=== PATIENT | female | born 1950 | race Caucasian/White ===

== ENCOUNTER → 2019-10-16 07:37 | Outpatient (CLI) | payer MEDICARE, OTHER, SELFPAY ==
--- NOTE | ~2019-10-16 | XR_ITS ---
EXAMINATION: HAND-CHENTE ARTHRITIS 3+VIEWS DATE: 10/16/2019 08:31 INDICATION: Unspecified osteoarthritis TECHNIQUE: Posteroanterior, lateral, and oblique views of the left and of the right hands as well as a ballcatchers view of both hands were obtained. COMPARISON: 05/20/2014 FINDINGS: Mild interval progression of polyarticular osteoarthritis at both hands, moderate to severe at the le ft triscaphe, first and second metacarpophalangeal and first interphalangeal joints, moderate severit y at the right distal radioulnar and first interphalangeal joints and mild at many of the remaining j oints in both hands. There is suggestion of chronic appearing juxta articular erosion with sclerotic margins and overhanging edges at the radial side of the head of the left first and second metacarpals . Mild subluxation likely degenerative in etiology at the bilateral first interphalangeal joints and left second metacarpophalangeal joint. No fractures. IMPRESSION: 1. Slight interval progression in polyarticular osteoarthritis of both hands as detailed above. This most severe at the right first and second metacarpophalangeal joints where there appear to be a coupl e chronic erosions suggesting this may be secondary to an earlier inflammatory arthritis. The asymmet ry as well as the appearance of the erosions would favor gout over rheumatoid arthritis. Reviewed, dictated and finalized at location A. IMPRESSION: 1. Slight interval progression in polyarticular osteoarthritis of both hands as detailed above. This most severe at the right first and second metacarpophalan geal joints where there appear to be a couple chronic erosions suggesting this may be secondary to an earlier inflammatory arthritis. The asymmetry as well as the appearance of the erosions would favor gout over rheumatoid arthritis.
--- NOTE | ~2019-10-16 | XR_ITS ---
EXAMINATION: XR foot LT standing 2V, XR foot RT standing 2V DATE: 10/16/2019 08:31 INDICATION: Osteoarthritis TECHNIQUE: 1. Standing dorsal plantar and lateral views of the left foot were obtained. 2. Standing dorsal plantar and lateral views of the right foot were obtained COMPARISON: None. FINDINGS: 35 degree hallux valgus on the left and 45 degree hallux valgus on the right. Normal alignment in the mid and hindfeet. Bilateral bunions with mild hypertrophic change at the medial heads of the first m etatarsals. No fractures. Mild to moderate osteoarthritis at the bilateral first metatarsophalangeal joints. Slight widening of the left second proximal interphalangeal joint with change of prior hammer toe correction with osteotomy at the head of the left second proximal phalanx. Remaining joint spaces are relatively preserved. Tiny bilateral Achilles calcaneal enthesophytes. IMPRESSION: 1. Moderate left and severe right hallux valgus with bunions and mild to moderate osteoarthritis at t he bilateral first metatarsophalangeal joints. Reviewed, dictated and finalized at location A. IMPRESSION: 1. Moderate left and severe right hallux valgus with bunions and mild to modera te osteoarthritis at the bilateral first metatarsophalangeal joints.
== END ==
PROVIDERS: Visit Provider Internal Medicine
DX: M47.812 Spondylosis without myelopathy or radiculopathy, cervical region (principal); M20.11 Hallux valgus (acquired), right foot; M20.12 Hallux valgus (acquired), left foot; M19.071 Primary osteoarthritis, right ankle and foot; M19.072 Primary osteoarthritis, left ankle and foot; M19.041 Primary osteoarthritis, right hand; M19.042 Primary osteoarthritis, left hand
CPT/HCPCS: 73130; 73620

== ENCOUNTER → 2021-02-18 10:39 | Outpatient (CLI) | payer MEDICARE, SELFPAY ==
--- NOTE | ~2021-02-18 | MM_ITS ---
EXAMINATION: MM screening liset BI w brissa HISTORY: Screening TECHNIQUE: Craniocaudal and mediolateral oblique 3-D tomosynthesis images were obtained and synthetic 2-D images were generated. CAD analysis was submitted and interpreted. COMPARISON: No prior mammogram is available for comparison at this institution. BREAST PARENCHYMAL COMPOSITION: Comparison to multiple prior studies sequentially, with oldest review ed study dated 12/10/2013. FINDINGS: There is no evidence of suspicious mass, calcification, or architectural distortion to sugg est malignancy in either breast. There has been no suspicious interval change. IMPRESSION: 1. No mammographic evidence of malignancy. 2. Recommend routine screening mammography in one year. BI-RADS Category 1: Negative Reviewed, dictated and finalized at location A. COMPLIANCE
== END ==
PROVIDERS: PCP Nurse Practitioner Family; Visit Provider Nurse Practitioner Family
DX: Z12.31 Encounter for screening mammogram for malignant neoplasm of breast (principal)
CPT/HCPCS: 77063; 77067

== ENCOUNTER → 2022-02-21 09:13 | Outpatient (CLI) | payer MEDICARE, SELFPAY ==
--- NOTE | ~2022-02-21 | DEXA_ITS ---
Bone Density Report Name: SHADIA MCCAULEY Age: 71 Sex: Female Ethnicity: White Date of : 1950 Indication: postmenopausal; screening for osteoporosis; height loss; hysterectomy; rheumatoid arthritis; Referring Provider: Marlen, Anjali Colon Study: Bone densitometry was performed. Exam Date: February 21, 2022 Accession number: [id number] Bone Density: Region BMD T-score Z-score Classification AP Spine (L1-L4) 1.277 2.1 4.3 Normal Femoral Neck (Left) 0.857 0.1 2.0 Normal Total Hip (Left) 1.050 0.9 2.5 Normal Femoral Neck (Right) 0.792 -0.5 1.4 Normal Total Hip (Right) 0.975 0.3 1.9 Normal Total Hip Mean 1.013 0.6 2.2 Normal World Health Organization criteria for BMD impression classify patients as: Normal (T-score at or above -1.0), Osteopenia (T-score between -1.0 and -2.5), or Osteoporosis (T-score at or below -2.5). 10-year Fracture Risk: FRAX not reported because: All T-scores for Spine Total, Hip Total, Femoral Neck at or above -1.0 Previous Exams: Region Exam Age BMD T-score BMD Change BMD Change Date g/cm2 vs Baseline vs Previous AP Spine(L1-L4) 02/21/2022 71 1.277 2.1 0.101 0.101 12/10/2013 63 1.176 1.2 Total Hip(Left) 02/21/2022 71 1.050 0.9 0.008 0.008 12/10/2013 63 1.041 0.8 Total Hip(Right) 02/21/2022 71 0.975 0.3 0.000 0.000 12/10/2013 63 0.976 0.3 *Denotes significance at 95% confidence level, LSC for AP Spine = 0.022 g/cm2, LSC for Total Hip = 0.027 g/cm2 Clinical Information Provided by Patient: Has rheumatoid arthritis Has used the following medications: Vitamin D, Calcium Has the following medical conditions: Hysterectomy Patient maximum height was 68.0 Menopause Age: 35 No regular weight bearing exercise Does not regularly consume dairy products Drinks caffeinated beverages Onset of menses at age 9 Number of children 1 Impression: The patient has normal bone mass. No significant bone loss was observed. Discussion: BONE DENSITY IS ABOVE THE MINIMUM DESIRABLE LEVEL AT ALL SKELETAL SITES TESTED. This patient?s bone mineral density is above the minimum desirable level (T-score -1.0 or better) at all sites measured. The patient should follow a healthful lifestyle (good nutrition with adequate calcium and vitamin D, and appropriate weight-bearing exercise). Follow-Up: Consider repeating this study in 5 years or sooner if there
== END ==
PROVIDERS: PCP Nurse Practitioner Family; Visit Provider Nurse Practitioner Family
DX: Z78.0 Asymptomatic menopausal state (principal); M85.80 Other specified disorders of bone density and structure, unspecified site
CPT/HCPCS: 77080

== ENCOUNTER 2022-06-02 13:57 | Inpatient (IN) | payer MEDICARE, SELFPAY ==
[2022-06-02] VITALS (10 sets, daily range): BP systolic 136–190; BP diastolic 69–107; PULSE 98–147; RESP 16–20; TEMP 36.6; O2SAT 95–97
--- NOTE | ~2022-06-02 | XR_ITS ---
Right Humerus Technique: Portable AP view was obtained. Clinical History: Pain Findings: No fracture or dislocation is seen. Osseous alignment is anatomic. Visualized joint spaces are grossly preserved. Soft tissues are unremarkable. Impression: No fracture or dislocation seen. Reviewed, dictated and finalized at location . Impression: No fracture or dislocation seen.
--- NOTE | ~2022-06-02 | XR_ITS ---
EXAMINATION: XR chest 1V portable INDICATION: Chest pain, rib fracture TECHNIQUE: Portable AP chest at 1734 hours COMPARISON: 06/03/2022 FINDINGS: The lungs are free of acute opacities. No pleural effusion or pneumothorax. The cardiomedia stinal silhouette is normal. Previously described left eighth and ninth rib fractures are not well de monstrated on this single AP view. IMPRESSION: 1. No acute cardiopulmonary abnormality. Reviewed, dictated and finalized at location A.
--- NOTE | ~2022-06-02 | XR_ITS ---
XR chest 2V DATE: 06/02/2022 18:52 INDICATION: Palpitations. Atrial fibrillation. TECHNIQUE: PA and lateral chest COMPARISON: 12/01/2011 PA and lateral chest FINDINGS: Normal heart size. Is aortic calcification, ectasia and unfolding. No hilar or mediastinal enlargement is detected. No pulmonary infiltrate or consolidation, pleural effusion or pulmonary vascular congestion or pneumo thorax. There is diffuse osteopenia. There is levoscoliosis of the thoracic spine and rotatory dextroscoliosi s and multilevel degenerative disc disease of the lumbar spine. IMPRESSION: No active cardiopulmonary disease Aortic ectasia, calcification and unfolding Reviewed, dictated and finalized at location A.
--- NOTE | ~2022-06-02 | XR_ITS ---
Portable chest x-ray Comparison: 06/02/2022 Clinical History: Pain Findings: Stable calcified left upper lobe granuloma. Lungs are otherwise clear. Cardiomediastinal silhouette is stable. Bones and soft tissues are unremarkable. Impression: No acute abnormality seen. Reviewed, dictated and finalized at [facility]. Impression: No acute abnormality seen.
--- NOTE | ~2022-06-02 | XR_ITS ---
EXAMINATION: XR ribs LT 2V INDICATION: Left posterior rib pain TECHNIQUE: 3 views of the left ribs were obtained. COMPARISON: 06/02/2022 FINDINGS: There are minimally displaced posterior fractures of the left eighth and ninth ribs.. The l ungs are free of acute opacities. No pleural effusion or pneumothorax. The cardiomediastinal silhouet te is normal. IMPRESSION: 1. Minimally displaced posterior fractures of the left eighth and ninth ribs. Reviewed, dictated and finalized at location B.
--- NOTE | 2022-06-02 14:29 | ECG_ITS ---
Measurements Intervals [place] Rate: 133 P: [place]: 0 QRS: 14 QRSD: 90 T: 18 QT: 294 QTc: 437 Interpretive Statements ATRIAL FIBRILLATION WITH RAPID VENTRICULAR RESPONSE NONSPECIFIC ST & T-WAVE ABNORMALITY- ANTEROLAT/INF LEADS BASELINE ARTIFACT- I, II, III, AVR, AVL ABNORMAL ECG NO PREVIOUS ECG AVAILABLE FOR COMPARISON Electronically Signed On 06-02-2022 15:55:00 CDT by John Roberson D.O.
[2022-06-02 14:58] LABS: Basophils Percent Auto 0.5 % (0.2-1.2); Eosinophils Absolute Auto 0.1 K/mm3 (0-0.3); Eosinophils Percent Auto 1.5 % (0-4.4); Hematocrit 43.9 % (37.0-47.0); Hemoglobin 14.6 g/dL (12.0-15.0); Immature Granulocyte Absolute 0.04 K/mm3 (0.00-0.031); Immature Granulocyte Percent A 0.5 % (0-0.5); Lymphocytes Absolute Auto 1.77 K/mm3 (0.9-3.2); Lymphocytes Percent Auto 23.6 % (18.3-44.2); Mean Corpuscular HGB Conc 33.3 g/dl (32-36); Mean Corpuscular Hemoglobin 32.3 pg (26-34); Mean Corpuscular Volume 97.1 fl (80-100); Mean Platelet Volume 8.5 fl (7.4-10.4); Monocytes Absolute Auto 1.1 K/mm3 (0.1-0.6); Monocytes Percent Auto 14.5 % (2.6-8.5); Neutrophils Absolute Auto 4.5 K/mm3 (1.3-6.7); Neutrophils Percent Auto 59.4 % (45.5-73.1); Platelet Count Result 276 k/mm3 (150-375); Red Blood Count 4.52 M/mm3 (4.2-5.4); Red Cell Distribution Width 12.4 % (11.5-14.5); White Blood Count 7.5 K/mm3 (4.5-10.0)
[2022-06-02 15:25] LABS: Alanine Aminotransferase 30 U/L (6-35); Albumin Level 4.8 g/dL (3.5-5.1); Alkaline Phosphatase 63 U/L (38-126); Anion Gap 9 mmol/L (8-16); Aspartate Amino Transferase 40 U/L (14-36); Bilirubin,Total 0.5 mg/dL (0.2-1.3); Blood Urea Nitrogen 20 mg/dL (7-17); Calcium 9.4 mg/dL (8.4-10.2); Carbon Dioxide 35 mmol/L (22-30); Chloride 88 mmol/L (98-107); Estimated CRCL calculation 43 ml/min; Estimated Glomerular Filt Rate 44; Glucose 130 mg/dL (65-110); Lipase 168 U/L (23-300); Potassium 3.3 mmol/L (3.4-5.0); Sodium 132 mmol/L (137-145)
[2022-06-02 15:35] LABS: Troponin I < 0.012 ng/mL (0.000-0.034)
--- NOTE | 2022-06-02 18:28 | ED.GENADULT ---
HPI - General Adult General Chief complaint: Unspecified Stated complaint: high bp, high HR Time Seen by Provider: 06/02/22 18:20 Source: patient Mode of arrival: ambulatory Limitations: no limitations History of Present Illness HPI narrative: Patient is a 71-year-old female with history of hypertension, hyperlipidemia presenting to the emergency department for evaluation of elevated blood pressure reading fast heart rate. Patient states her blood pressure remains greater than 160 systolic at home. She states that the bottom number has been higher than 100. Patient denies chest pain. She denies dyspnea. No palpitations. Pt reports her HR has been 90s-100s. Pt denies history of atrial fibrillation. She was prescribed amlodipine by her primary care physician and has been taking that for the past 3 days without much improvement in her blood pressure. Related Data Home Medications Medication Instructions Recorded Confirmed brinzolamide 1 %-brimonidine 0.2 % 1 drop ophthalmic (eye) BID 05/15/19 04/27/21 eye drops,suspension (Simbrinza) gabapentin 300 mg tablet,extended 300 mg PO QPM 05/15/19 04/27/21 release 24 hr latanoprost 0.005 % eye drops 1 drop ophthalmic (eye) DAILY 05/15/19 04/27/21 propylene glycol 0.6 % eye drops 1 drop ophthalmic (eye) BID PRN 05/15/19 04/27/21 (Systane Balance) timolol 0.25 % eye drops 1 drop ophthalmic (eye) Q12H 05/15/19 04/27/21 calcium carbonate [Calcium 500] PO 06/09/20 04/27/21 cholecalciferol (vitamin D3) 25 25 mcg PO DAILY 06/09/20 04/27/21 mcg (1,000 unit) capsule simvastatin 10 mg tablet 20 mg PO DAILY 04/27/21 04/27/21 lisinopril 20 1 tablet PO DAILY 09/03/21 mg-hydrochlorothiazide 12.5 mg tablet peg 400-propylene glycol (PF) 0.4 1 drp EACH EYE Q12H PRN 09/03/21 %-0.3 % eye drops in a dropperette (Systane (PF)) Allergies Allergy/AdvReac Type Severity Reaction Status Date / Time No Known Allergies Allergy Verified 06/02/22 14:28 Review of Systems Review of Systems: CONSTITUTIONAL: Denies fever, chills, or sweats. EYES: Denies visual changes, redness, or discharge. ENT: Denies rhinorrhea, congestion, sore throat, or otalgia. CARDIOVASCULAR: Denies chest pain, palpitations, or edema. RESPIRATORY: Denies cough or dyspnea. GASTROINTESTINAL: Denies abdominal pain, nausea, vomiting, or diarrhea. GENITOURINARY: Denies dysuria or hematuria. SKIN: Denies rash or itching. MUSCULOSKELETAL: Denies back pain, joint pain, or myalgia. NEUROLOGIC: Denies headache, numbness, or weakness. [facility] Past Medical History Medical History Arthritis DJD (degenerative joint disease) of cervical spine Generalized osteoarthritis of multiple sites Hepatitis C antibody positive in blood Hypertension Surgical History Surgical History H/O colonoscopy H/O total hysterectomy S/P excision of neuroma Family History Family History Mother Congestive heart failure (CHF) Father Pulmonary embolism Social History Social History Smoking status: Former smoker Smoking end date: 06/11/97 Alcohol intake: current Substance use: never Substance use type: does not use Living arrangements: with family Additional living arrangements comments: Occupation/Education: retired Gender identity (if verbalized by the patient): Female Spiritual care concerns: No Agree to blood products: No Exam Narrative: GENERAL: Awake, alert, conversant HEAD: Normocephalic, atraumatic. EYES: PERRLA and EOMI. ENT: Nares clear, no rhinorrhea or epistaxis. Mucous membranes moist. NECK: Supple. CHEST: No respiratory distress, breathing even and non labored, no crackles, no wheezing rhonchi or rales HEART: Tachycardic rate, irregular rhythm ABDOMEN
--- NOTE | 2022-06-02 18:49 | ECG_ITS ---
Measurements Intervals [place] Rate: 124 P: [place]: 0 QRS: 4 QRSD: 84 T: 31 QT: 292 QTc: 420 Interpretive Statements ATRIAL FIBRILLATION WITH RAPID VENTRICULAR RESPONSE VOLTAGE CRITERIA FOR LVH BORDERLINE ST ABNORMALITY- ANTERIOR LEADS ABNORMAL ECG COMPARED TO ECG 06/02/2022 14:33:37 NO SIGNIFICANT CHANGES Electronically Signed On 06-02-2022 20:59:05 CDT by John Roberson D.O.
[2022-06-02] MEDS: SODIUM CHLORIDE 0.9% IV 1,000 ML 999 ML IV CONT (19:03)
[2022-06-02] MEDS: dilTIAZem HCl INJ 25 MG/5 ML VIAL 10 MG IV PUSH (19:03)
[2022-06-02] MEDS: ENOXAPARIN 100 MG/ML SYRINGE 90 MG SUB-Q (19:04)
[2022-06-02] MEDS: dilTIAZem 100 MG/100 ML 100 MG/100 ML BAG IV CONT (19:10)
[2022-06-02 19:31] LABS: NT Pro B Type Natriuretic Pept 213 pg/mL (19.9-100)
[2022-06-02 19:38] LABS: Troponin I < 0.012 ng/mL (0.000-0.034)
--- NOTE | 2022-06-02 19:55 | PM.IMHP ---
H&P: HPI History of Present Illness Date/Time: 06/02/22 19:55 Chief Complaint: Uncontrolled hypertension Narrative: This is a 71-year-old female with past medical history significant for cataracts, hypertension, dyslipidemia, degenerative joint disease, generalized osteoarthritis. Patient presents to the emergency room due to uncontrolled hypertension emergency room she was found to have atrial fibrillation with rapid ventricular response. Patient denies any syncope or near syncope or lightheadedness no palpitations, no chest pain, no leg swelling, no pedal swelling, no orthopnea, no PND, no nausea, no vomiting, no abdominal pain. Only complaint patient had was elevated a blood pressure for which she went to see her primary care physician. In emergency room patient was found to have systolic blood pressure in the 190s diastolic in the 100s. A chest x-ray was reported as: FINDINGS: There is persistent right lower lobe infiltrate and/or atelectasis. Bilateral hyperinflation, suggesting COPD. No pulmonary vascular congestion or pneumothorax is evident. Small right pleural effusion is suggested. No left pleural effusion. Bilateral upper thoracic spinal pedicle screws and rods. Osteopenia. Old bilateral rib fractures. IMPRESSION: Persistent right lower lobe infiltrate, mild right pleural effusion; little interval change since 05/23/2022? Review of Systems Review of Systems: Uncontrolled blood pressure Constitutional: Constitutional: Denies chills, Denies fatigue, Denies fever(s), Denies lethargy, Denies malaise, Denies night sweats, Denies poor appetite and Denies weakness Eyes: Eyes: Denies change in vision ENT: Denies dysphagia and Denies odynophagia Cardiovascular: Cardiovascular: Denies chest pain, Denies lightheadedness and Denies palpitations Respiratory: Respiratory: Denies chest congestion, Denies cough and Denies dyspnea Gastrointestinal: Gastrointestinal: Denies abdominal pain, Denies dyspepsia, Denies heartburn, Denies diarrhea, Denies nausea and Denies vomiting Genitourinary: Genitourinary: Reports no additional female genitourinary complaints and Reports as per HPI Musculoskeletal: Musculoskeletal: Denies back pain, Denies joint swelling and Denies muscle weakness Integumentary/Breasts: Skin/Breast: Denies rash Neurologic: Denies focal weakness and Denies Sensory deficit (Neuro) Psychiatric: Psychiatric: Reports no additional psychiatric complaints and Reports as per HPI Endocrine: Endocrine: Denies cold intolerance, Denies flushing, Denies heat intolerance, Denies polyphagia, Denies polydipsia and Denies palpitations Hematologic/Lymphatic: Hematologic/Lymphatic: Reports no additional hematologic/lymphatic complaints and Reports as per HPI Allergic/Immunologic: Allergic/Immunologic: Reports no additional allergic/immunologic complaints and Reports as per HPI [facility] Past Medical History Medical History Arthritis DJD (degenerative joint disease) of cervical spine Generalized osteoarthritis of multiple sites Hepatitis C antibody positive in blood Hypertension Surgical History Surgical History H/O colonoscopy H/O total hysterectomy S/P excision of neuroma Family History Family History Mother Congestive heart failure (CHF) Father Pulmonary embolism Social History Social History Smoking status: Former smoker Tobacco type: cigarettes Smoking end date: 03/13/97 Alcohol intake: current Drinks per week: 4 Substance use: never Substance use type: does not use Lack of Transportation: No Lack of Food: Never True Current Housing: I Have Housing Concerned About Future Housing: No Difficulty Paying Gas/Electric Bills: No Difficulty Paying for Meds: N
[2022-06-02 20:48] LABS: Troponin I 0.013 ng/mL (0.000-0.034)
[2022-06-02 21:01] LABS: Free T4 Free Thyroxine Reflex 1.17 ng/dL (0.78-2.19)
[2022-06-02 21:42] LABS: Total Triiodothyronine (T3) 1.55 NG/ML (0.97-1.69)
[2022-06-03] VITALS (17 sets, daily range): BP systolic 115–168; BP diastolic 67–102; PULSE 52–118; RESP 16–22; TEMP 36–37.2; O2SAT 93–98; BMI 33.2
--- NOTE | 2022-06-03 | ECHO_ITS ---
Patient Info Name: Nicole Sun Age: 71 years : 1950 Gender: Female Ht: 66 in Wt: 202 lbs BSA: 2.10 m2 HR: 87 bpm BP: 141 / 69 mmHg Heart Rhythm: Atrial Fibrillation Technical Quality: Fair Exam Date: 06/03/2022 7:49 AM Exam Location: [facility] Patient Status: Inpatient Admit Date: 06/02/2022 Staff Ordering Physician: John Roberson DO Archival Studies Professor: Kassie Ratliff RDCS Attending Provider: Juan M Chawla MD Referring Physician: Da CHU; Exam Type: CA echo doppler color flow Study Info Indications - atrial fib Complete two-dimensional, color flow and Doppler transthoracic echocardiogram is performed. Summary 1. Complete two-dimensional, color flow and Doppler transthoracic echocardiogram is performed. 2. Left ventricular chamber dimension is normal. 3. Left ventricular systolic function is normal, estimated at 65-70%. 4. There is mild concentric increased left ventricular wall thickness. 5. The left ventricular diastolic function is normal. 6. E/e' 9 is minimally elevated. 7. Atrial fibrillation. 8. Left atrial chamber dimension is mildly enlarged. Left Ventricle E/e' 9 is minimally elevated. Atrial fibrillation. Left ventricular chamber dimension is normal. Left ventricular systolic function is normal, estimated at 65-70%. There is mild concentric increased left ventricular wall thickness. The left ventricular diastolic function is normal. Right Ventricle Right ventricular systolic function is normal and with normal TAPSE 2.0 cm. Right ventricular chamber dimension is normal. Left Atria Left atrial chamber dimension is mildly enlarged. Right Atria Right atrial chamber dimension is normal. Aortic Valve The aortic valve is trileaflet. There is no aortic valve stenosis. There is no aortic valve regurgitation. Pulmonic Valve There is no pulmonic regurgitation. Mitral Valve There is no mitral valve stenosis. There is no mitral valve regurgitation. Tricuspid Valve There is no tricuspid valve regurgitation. Pericardium/Pleural There is no pericardial effusion. Inferior Vena Cava Normal inferior vena cava with >50% collapse upon inspiration consistent with normal right atrial pressure, 5 mmHg. Aorta The aortic root size at the sinus of Valsalva is normal. Left Ventricular Outflow Tract Name Value Normal LVOT 2D LVOT Diameter 2.0 cm LVOT Doppler LVOT Peak Gradient 11 mmHg LVOT Mean Gradient 5 mmHg LVOT VTI 26 cm LVOT VTI/AV VTI Ratio 0.9 LVOT Stroke Volume 84 ml LVOT CO 8.7 l/min LVOT CI 4.2 l/min/m2 Pulmonic Valve Name Value Normal RVOT Doppler RVOT Peak Gradient
--- NOTE | 2022-06-03 01:04 | ADMGEN ---
This patient, Nicole Sun, was admitted to IMU Room 206-01 at 0000 from ED per wheelchair. Patient/family oriented to hospital policies and general routines including ID bracelet, bed and alarms, visiting hours, pain management, procedures, bathroom and other care routines, personal items, smoking policy, room service/diet, and visiting hours. Information on how to activate the Rapid Response Team has been discussed. Patient/Family are encouraged to report perceived risks to care and to ask questions if they do not understand what they are told or what they should do.
[2022-06-03] MEDS: diphenhydrAMINE HCl CAP 25 MG CAPSULE 50 MG PO (01:57)
[2022-06-03] MEDS: dilTIAZem 100 MG/100 ML 100 MG/100 ML BAG 15 MG IV CONT (03:29)
[2022-06-03 05:31] LABS: Basophils Percent Auto 0.3 % (0.2-1.2); Eosinophils Absolute Auto 0.1 K/mm3 (0-0.3); Eosinophils Percent Auto 0.5 % (0-4.4); Hemoglobin 14.6 g/dL (12.0-15.0); Immature Granulocyte Absolute 0.04 K/mm3 (0.00-0.031); Immature Granulocyte Percent A 0.4 % (0-0.5); Lymphocytes Absolute Auto 1.34 K/mm3 (0.9-3.2); Lymphocytes Percent Auto 13.9 % (18.3-44.2); Mean Corpuscular Hemoglobin 32.7 pg (26-34); Mean Corpuscular Volume 96.2 fl (80-100); Mean Platelet Volume 8.7 fl (7.4-10.4); Monocytes Absolute Auto 1.3 K/mm3 (0.1-0.6); Monocytes Percent Auto 13.4 % (2.6-8.5); Neutrophils Absolute Auto 6.9 K/mm3 (1.3-6.7); Neutrophils Percent Auto 71.5 % (45.5-73.1); Platelet Count Result 292 k/mm3 (150-375); Red Blood Count 4.47 M/mm3 (4.2-5.4); Red Cell Distribution Width 12.4 % (11.5-14.5); White Blood Count 9.6 K/mm3 (4.5-10.0)
[2022-06-03 05:44] LABS: Anion Gap 8 mmol/L (8-16); Blood Urea Nitrogen 14 mg/dL (7-17); Calcium 8.9 mg/dL (8.4-10.2); Carbon Dioxide 30 mmol/L (22-30); Chloride 94 mmol/L (98-107); Estimated CRCL calculation 98 ml/min; Estimated Glomerular Filt Rate > 60; Glucose 127 mg/dL (65-110); Potassium 3.3 mmol/L (3.4-5.0); Sodium 132 mmol/L (137-145)
--- NOTE | 2022-06-03 07:49 | PM.CNCAR ---
Assessment and Plan Assessment and plan (1) Atrial fibrillation with rapid ventricular response: Code(s): I48.91 - Unspecified atrial fibrillation Status: Acute Assessment and Plan: Asymptomatic, new onset but we don't know when it actually started. Probably due to hypertension and age. [id number]. Start Eliquis 5 mg BID. If cost-prohibitive then will need to start Warfarin. Obtain echo and lexiscan myoview stress test. Change Diltiazem IV to 360 mg PO daily and add Metoprolol Tartate 25 mg PO BID. If HR and BP controlled and stress test/echo are OK may d/c home from cardiology standpoint and have her f/u with me in 1 week. She is adamant she is not staying another night primarily due to chronic back pain and unable to sleep here. (2) Uncontrolled hypertension: Code(s): I10 - Essential (primary) hypertension Status: Acute (3) Dyslipidemia: Code(s): E78.5 - Hyperlipidemia, unspecified Status: Acute Assessment and Plan: On Simvastatin. History of Present Illness History of Present Illness Consult date/time: 06/03/22 07:49 Reason For Visit: A fib with RVR Narrative: 71 yr old woman presented to ER for hypertension. She has a history of hypertension, dyslipidemia, chronic lower back pain. Reports she was concerned that her BP was high so she came in and was found to be in atrial fib with RVR. Diltiazem drip started and rate is controlled now in atrial fib. She is limited at walking short distances due to chronic lower back pain and she is having it now lying in hospital bed per patient. She wants to go home and will not stay another night. Denies chest pain, sob, orthopnea, PND, edema, dizziness, palpitations. Review of Systems Review of Systems: All systems reviewed & are unremarkable except as noted in HPI and below Constitutional: Constitutional: Reports as per HPI, Denies chills and Denies fever(s) Cardiovascular: Cardiovascular: Reports as per HPI, Denies chest pain, Denies irregular heart rhythm and Denies leg edema Respiratory: Respiratory: Reports as per HPI and Denies dyspnea Gastrointestinal: Gastrointestinal: Reports as per HPI and Denies abdominal pain Genitourinary: Genitourinary: Reports as per HPI and Denies dysuria Musculoskeletal: Musculoskeletal: Reports as per HPI and Reports back pain Neurologic: Reports as per HPI, Denies dizziness and Denies syncope FORMERLY [facility], [facility]–1983 Past Medical History Medical History Arthritis DJD (degenerative joint disease) of cervical spine Generalized osteoarthritis of multiple sites Hepatitis C antibody positive in blood Hypertension Surgical History Surgical History H/O colonoscopy H/O total hysterectomy S/P excision of neuroma Family History Family History Mother Congestive heart failure (CHF) Father Pulmonary embolism Social History Social History Smoking status: Former smoker Tobacco type: cigarettes Smoking end date: 03/13/97 Alcohol intake: current Drinks per week: 4 Substance use: never Substance use type: does not use Lack of Transportation: No Lack of Food: Never True Current Housing: I Have Housing Concerned About Future Housing: No Difficulty Paying Gas/Electric Bills: No Difficulty Paying for Meds: No Currently Unemployed: No Education: High School Diploma/GED Difficulty w/ Childcare or Family Care: No Living arrangements: with family Additional living arrangements comments: Occupation/Education: retired Gender identity (if verbalized by the patient): Female Spiritual care concerns: No Agree to blood products: No Meds Home Medications and Allergies Home Medications Medication Instructions Recorded Confir
[2022-06-03] MEDS: HYDROcodone/acetaminophen (*CRX) 5-325 MG TABLET 1 TAB PO (09:57)
[2022-06-03] MEDS: dilTIAZem HCL CD 180 MG CAP.ER.24H 360 MG PO (09:57)
[2022-06-03] MEDS: SIMVASTATIN 10 MG TABLET 20 MG PO (09:58)
[2022-06-03] MEDS: METOPROLOL TARTRATE 25 MG TABLET PO (09:58)
[2022-06-03] MEDS: GABAPENTIN 300 MG CAPSULE PO ×2 (09:58→16:46)
[2022-06-03] MEDS: CHOLECALCIFEROL 1,000 UNITS TABLET 1000 UNITS PO (09:59)
[2022-06-03] MEDS: lisinopriL 20 MG TABLET PO ×2 (09:59→20:24)
[2022-06-03] MEDS: APIXABAN 5 MG TABLET PO ×2 (09:59→20:24)
[2022-06-03] MEDS: hydroCHLOROthiazide 12.5 MG CAPSULE PO ×2 (09:59→20:24)
[2022-06-03] MEDS: BRIMONIDINE TARTRATE 0.2% OP SOLN 5 ML BTL 1 DROP EACH EYE ×2 (12:44→17:38)
[2022-06-03] MEDS: TIMOLOL MALEATE 0.25% OP SOLN 5 ML BOTTLE 1 DROP EACH EYE ×2 (12:44→20:25)
[2022-06-03] MEDS: LATANOPROST 0.005% OP SOLN 2.5 ML BTL 1 DROP EACH EYE (12:44)
[2022-06-03] MEDS: BRINZOLAMIDE 1% OPHTH SUSP 10 ML 1 DROP EACH EYE ×2 (12:44→17:39)
[2022-06-03] MEDS: HYDROcodone/acetaminophen (*CRX) 10-325 MG TABLET 1 TAB PO ×3 (12:45→20:25)
--- NOTE | 2022-06-03 13:24 | PM.IMPN ---
Progress Note: A&P Assessment and Plan (1) Atrial fibrillation with rapid ventricular response: Code(s): I48.91 - Unspecified atrial fibrillation Status: Acute Assessment and Plan: Transition to oral Cardizem. With Shanice Torres cardiology input (2) DJD (degenerative joint disease) of cervical spine: Code(s): M47.812 - Spondylosis without myelopathy or radiculopathy, cervical region Status: Acute Assessment and Plan: Tylenol as needed Unchanged (3) Uncontrolled hypertension: Code(s): I10 - Essential (primary) hypertension Status: Acute Assessment and Plan: Resume home meds Continue to monitor Target 130/80 (4) Fall: Code(s): W19.XXXA - Unspecified fall, initial encounter Status: Acute Assessment and Plan: Status post fall, tripped over the IV pole. No loss of consciousness Rib fractures noted continue pain control Hip pain, will get hip x-rays (5) Rib fracture: Code(s): S22.39XA - Fracture of one rib, unspecified side, initial encounter for closed fracture Status: Acute Assessment and Plan: Continue pain control, will get chest x-ray in a.m. Subjective Date/time seen: 06/03/22 13:24 Fall in the bathroom this morning. Exam Narrative: Patient is laying in a stretcher in semi upright position Const: General: comfortable, no acute distress, well developed, alert, awake, average body habitus, obese and other (Well-appearing) Nutritional Appearance: average body habitus and obese Orientation/consciousness: patient oriented x3 HENMT: Head: normal to inspection, normocephalic and atraumatic Ears: hearing grossly normal bilaterally Face/Nose/Sinus: normal facial exam Face and sinus: normal facial exam Eyes: General: appearance normal, both eyes and all related structures Pupils: Equal, round and reactive pupils present EOM: EOMs intact bilaterally Neck: Neck: full ROM, no lymphadenopathy and no JVD Thyroid: thyroid normal Lymphatic: no lymphadenopathy noted Resp: Effort & Inspection: normal respiratory effort and able to speak in complete sentences Auscultation: clear to auscultation bilaterally Cardio: Jugular venous distension: no JVD Rate: regular rate Rhythm: regular rhythm Heart sounds: S1 normal heart sound present and S2 normal heart sound present GI: Inspection: obesity : General: Yes deferred Skin: Rashes: no rashes Wounds: no wounds Neuro: General: patient oriented x3, CN's II-XI intact bilaterally and Unable to assess gait Cranial nerves: Yes CN's II-XII intact bilaterally and Yes Equal, round and reactive pupils present Cognition (Neuro): normal cognition Speech: normal speech Gait exam (Neuro): Unable to assess gait Motor exam (neuro): 5/5 motor strength present throughout Sensory Exam: No Sensory deficit (Neuro) Extrem: General: normal to inspection, full ROM, no joint enlargement and no pedal edema Objective Data Vital Signs Vital Signs: Vital Signs - 24 hr 06/02/22 14:24 06/02/22 18:50 06/02/22 19:10 Temperature 97.8 F Pulse Rate 98 147 H 116 H Respiratory Rate 16 19 Blood Pressure 152/104 H 190/107 H 190/107 H Pulse Oximetry 97 97 Oxygen Delivery Room Air 06/02/22 20:21 06/02/22 21:08 06/02/22 21:00 Temperature Pulse Rate 118 H 112 H 131 H Respiratory Rate 20 Blood Pressure 171/101 H 169/89 H 169/89 H Pulse Oximetry 95 Oxygen Delivery 06/02/22 21:30 06/02/22 22:00 06/02/22 22:30 Temperature Pulse Rate 106 H 101 H 98 Respiratory Rate 16 16 16 Blood Pressure 142/83 H 155/88 H 136/77 Pulse Oximetry 96 97 97 Oxygen Delivery 06/02/22 23:00 06/03/22 00:36 06/03/22 02:00 Temperature 97 F L Pulse Rate 99 92 95 Respiratory Rate 18 18 Blood Pressure 151/69 H 151/75 H Pulse Oximetry 97 98 Oxygen Delivery 06/03/22 03:29 06/03/22 04:00 06/03/22 04:00 Temperature Pulse Rate 114 H 105 H 105 H Respiratory Rate 18 Blood
[2022-06-03] MEDS: POTASSIUM CHLORIDE 20 MEQ PACKET (FOR LIQUID) 40 MEQ PO (16:46)
[2022-06-04] VITALS (7 sets, daily range): BP systolic 119–133; BP diastolic 67; PULSE 48–70; RESP 16; TEMP 36.3–36.8; O2SAT 94–97
[2022-06-04] MEDS: HYDROcodone/acetaminophen (*CRX) 10-325 MG TABLET 1 TAB PO ×2 (04:13→09:46)
--- NOTE | 2022-06-04 08:03 | PM.PNCARD ---
Progress Note: A&P Assessment and Plan (1) Atrial fibrillation with rapid ventricular response: Code(s): I48.91 - Unspecified atrial fibrillation Status: Acute Assessment and Plan: Asymptomatic, new onset but we don't know when it actually started. Probably due to hypertension and age. [id number]. Started Eliquis 5 mg BID. If cost-prohibitive then will need to start Warfarin. Lexiscan myoview stress test canceled yesterday due to rib fractures from fall. Echo on 06/03/22 EF 65-70%, mild LVH, mild LAE. Back in sinus rhythm after rate controlled. Check BMP. If OK may d/c home from cardiology standpoint and have her f/u with me in 1 week. She is adamant she is not staying another night primarily due to chronic back pain and unable to sleep here. (2) Uncontrolled hypertension: Code(s): I10 - Essential (primary) hypertension Status: Acute Assessment and Plan: Stable. Decrease Lisinopril/HCTZ 20/12.5 mg daily. (3) Dyslipidemia: Code(s): E78.5 - Hyperlipidemia, unspecified Status: Acute Assessment and Plan: On Simvastatin. Subjective Date/time seen: 06/04/22 08:03 Interval history: Has some left side chest pain from rib fractures. She slipped on her IV pole in restroom and fell. No sob. Exam Const: General: cooperative, healthy appearing and comfortable Orientation/consciousness: oriented to person, oriented to place and oriented to time Resp: Auscultation: clear to auscultation bilaterally, no crackles, no rales, no rhonchi and no wheezes Cardio: Rate: regular rate Rhythm: regular rhythm Heart sounds: no murmurs Peripheral pulses: dorsalis pedis present Neuro: General: oriented to person, oriented to place and oriented to time Extrem: Right lower extremity: no edema Left lower extremity: no edema Objective Data Vital Signs Vital Signs: Vital Signs - 24 hr 06/03/22 08:51 06/03/22 09:58 06/03/22 12:00 Temperature 96.8 F L Pulse Rate 92 85 58 L Respiratory Rate 22 H 20 Blood Pressure 157/102 H 168/92 H Pulse Oximetry 98 93 Oxygen Delivery 06/03/22 12:00 06/03/22 16:00 06/03/22 16:00 Temperature 97.9 F Pulse Rate 52 L 52 L Respiratory Rate 20 20 Blood Pressure 134/79 Pulse Oximetry 94 94 Oxygen Delivery Room Air Room Air 06/03/22 10:00 06/03/22 12:00 06/03/22 14:00 Temperature Pulse Rate 80 58 L 56 L Respiratory Rate Blood Pressure Pulse Oximetry Oxygen Delivery 06/03/22 16:00 06/03/22 18:00 06/03/22 20:00 Temperature 97.1 F L Pulse Rate 53 L 57 L 59 L Respiratory Rate 16 Blood Pressure 152/79 H Pulse Oximetry 98 Oxygen Delivery 06/03/22 23:49 06/03/22 20:00 06/04/22 00:00 Temperature 96.9 F L Pulse Rate 54 L 59 L 54 L Respiratory Rate 16 16 16 Blood Pressure 115/67 Pulse Oximetry 94 98 94 Oxygen Delivery Room Air Room Air 06/03/22 20:00 06/03/22 22:00 06/04/22 00:00 Temperature Pulse Rate 56 L 54 L 51 L Respiratory Rate Blood Pressure Pulse Oximetry Oxygen Delivery 06/04/22 02:00 06/04/22 04:00 06/04/22 04:00 Temperature 97.3 F L Pulse Rate 48 L 57 L 61 Respiratory Rate 16 Blood Pressure 120/67 Pulse Oximetry 97 Oxygen Delivery 06/04/22 04:00 06/04/22 06:00 Temperature Pulse Rate 57 L 59 L Respiratory Rate 16 Blood Pressure Pulse Oximetry 97 Oxygen Delivery Room Air Intake/Output Intake/Output: Intake & Output 06/01/22 06/02/22 06/03/22 06/04/22 23:59 23:59 23:59 23:59 Intake Total 1000 860 400 Output Total 1200 Balance 1000 -340 400 Meds/Results Medications: Active Medications Generic Name Dose Route Start Last Admin Trade Name Freq PRN Reason Stop Dose Admin Acetaminophen 650 mg 06/02/22 20:34 Acetaminophen 325 Mg Tablet PO Q4H PRN Mild Pain (1-3) or Fever Hydrocodone Bitart/Acetaminophen 1 tab 06/03/22 11:47 06/04/22 04:13 Hydrocodone/Acetaminophen (*Crx) 10-325
[2022-06-04 08:19] LABS: Anion Gap 8 mmol/L (8-16); Blood Urea Nitrogen 28 mg/dL (7-17); Calcium 9.4 mg/dL (8.4-10.2); Carbon Dioxide 31 mmol/L (22-30); Chloride 90 mmol/L (98-107); Estimated CRCL calculation 58 ml/min; Estimated Glomerular Filt Rate > 60; Glucose 139 mg/dL (65-110); Sodium 129 mmol/L (137-145)
[2022-06-04] MEDS: dilTIAZem HCL CD 180 MG CAP.ER.24H 360 MG PO (09:32)
[2022-06-04] MEDS: hydroCHLOROthiazide 12.5 MG CAPSULE PO (09:34)
[2022-06-04] MEDS: APIXABAN 5 MG TABLET PO (09:35)
[2022-06-04] MEDS: BRINZOLAMIDE 1% OPHTH SUSP 10 ML 1 DROP EACH EYE (09:35)
[2022-06-04] MEDS: BRIMONIDINE TARTRATE 0.2% OP SOLN 5 ML BTL 1 DROP EACH EYE (09:35)
[2022-06-04] MEDS: GABAPENTIN 300 MG CAPSULE PO ×2 (09:37→12:56)
[2022-06-04] MEDS: CHOLECALCIFEROL 1,000 UNITS TABLET 1000 UNITS PO (09:37)
[2022-06-04] MEDS: SIMVASTATIN 10 MG TABLET 20 MG PO (09:38)
[2022-06-04] MEDS: lisinopriL 20 MG TABLET PO (09:38)
[2022-06-04] MEDS: TIMOLOL MALEATE 0.25% OP SOLN 5 ML BOTTLE 1 DROP EACH EYE (09:43)
--- NOTE | 2022-06-04 12:55 | PM.DS ---
DS: Admitting Diagnosis Discharge Date June 04, 2022 Admitting Diagnosis AFib, fall DS: Discharge Diagnosis Discharge Diagnosis (1) Atrial fibrillation with rapid ventricular response: Code(s): I48.91 - Unspecified atrial fibrillation Status: Acute Assessment and Plan: Transition to oral Cardizem. With Eliquis Appreciate cardiology input (2) DJD (degenerative joint disease) of cervical spine: Code(s): M47.812 - Spondylosis without myelopathy or radiculopathy, cervical region Status: Acute Assessment and Plan: Tylenol as needed Unchanged (3) Uncontrolled hypertension: Code(s): I10 - Essential (primary) hypertension Status: Acute Assessment and Plan: Resume home meds Continue to monitor Target 130/80 (4) Fall: Code(s): W19.XXXA - Unspecified fall, initial encounter Status: Acute Assessment and Plan: Status post fall, tripped over the IV pole. No loss of consciousness Rib fractures noted continue pain control Hip pain, will get hip x-rays (5) Rib fracture: Code(s): S22.39XA - Fracture of one rib, unspecified side, initial encounter for closed fracture Status: Acute Assessment and Plan: Continue pain control, will get chest x-ray in a.m. DS: Summary Hospital Course Hospital Course: Patient is here for new diagnosis AFib RVR. Patient be sent home on Cardizem and Eliquis. Heart rates now converted back to normal sinus rhythm. Follow Cardiology. To note patient did have a fall in the bathroom while she was here. It was a mechanical fall she tripped over the IV pole. Fractured ribs, will be treated with pain medication on discharge. Time Spent with Patient Time attestation: Total time spent providing and/or coordinating discharge services: Exam Narrative: Patient is laying in a stretcher in semi upright position Const: General: comfortable, no acute distress, well developed, alert, awake, average body habitus, obese and other (Well-appearing) Nutritional Appearance: average body habitus and obese Orientation/consciousness: patient oriented x3 HENMT: Head: normal to inspection, normocephalic and atraumatic Ears: hearing grossly normal bilaterally Face/Nose/Sinus: normal facial exam Face and sinus: normal facial exam Eyes: General: appearance normal, both eyes and all related structures Pupils: Equal, round and reactive pupils present EOM: EOMs intact bilaterally Neck: Neck: full ROM, no lymphadenopathy and no JVD Thyroid: thyroid normal Lymphatic: no lymphadenopathy noted Resp: Effort & Inspection: normal respiratory effort and able to speak in complete sentences Auscultation: clear to auscultation bilaterally Cardio: Jugular venous distension: no JVD Rate: regular rate Rhythm: regular rhythm Heart sounds: S1 normal heart sound present and S2 normal heart sound present GI: Inspection: obesity : General: Yes deferred Skin: Rashes: no rashes Wounds: no wounds Neuro: General: patient oriented x3, CN's II-XI intact bilaterally and Unable to assess gait Cranial nerves: Yes CN's II-XII intact bilaterally and Yes Equal, round and reactive pupils present Cognition (Neuro): normal cognition Speech: normal speech Gait exam (Neuro): Unable to assess gait Motor exam (neuro): 5/5 motor strength present throughout Sensory Exam: No Sensory deficit (Neuro) Extrem: General: normal to inspection, full ROM, no joint enlargement and no pedal edema DS: Data Data Completed and Pending Labs on day of discharge: Labs from last 24 hours 06/04/22 07:56 Sodium 129 L Potassium 4.0 Chloride 90 L Carbon Dioxide 31 H Anion Gap 8 BUN 28 H D Creatinine 0.90 Estim Creat Clear Calc 58 Estimated GFR > 60 Glucose 139 H Calcium 9.4 Discharge Plan Discharge Attending physician on discharge: Hayder Becerra Consulting providers: John Roberson Discharging Clinician: Hayder Becerra
--- NOTE | 2022-06-04 14:23 | PC.NURSE ---
I reviewed the License Pending Therapist's documentation and agree with the findings.
== END 2022-06-04 14:03 | disposition home or self-care (01) | DRG 310 ==
LOC: ANHED 19:46 → ANHIMU 23:05
PROVIDERS: Emergency Medicine; Internal Medicine Cardiovascular Disease; Admitting Provider Internal Medicine; Emergency Provider Emergency Medicine; PCP Nurse Practitioner Family; Visit Provider Chiropractor
DX: I48.91 Unspecified atrial fibrillation (principal); S22.42XA Multiple fractures of ribs, left side, initial encounter for closed fracture; W18.09XA Striking against other object with subsequent fall, initial encounter; M47.812 Spondylosis without myelopathy or radiculopathy, cervical region; I10 Essential (primary) hypertension; E78.5 Hyperlipidemia, unspecified; E66.9 Obesity, unspecified; Z68.34 Body mass index [BMI] 34.0-34.9, adult; Z90.710 Acquired absence of both cervix and uterus; Z87.891 Personal history of nicotine dependence
CPT/HCPCS: 36415; 71045; 71046; 71100; 73060; 80048; 80053; 83690; 83880; 84439; 84443; 84480; 84484; 85025; 85610; 85730; 93005; 93306; 96365; 96372; 96376; 99285; A9270; J1650; J2785; J7030

== ENCOUNTER → 2022-06-16 09:42 | Outpatient (CLI) | payer MEDICARE, SELFPAY ==
--- NOTE | ~2022-06-16 | MM_ITS ---
EXAMINATION: MM screening liset BI w brissa HISTORY: Screening TECHNIQUE: Craniocaudal and mediolateral oblique 3-D tomosynthesis images were obtained and synthetic 2-D images were generated. CAD analysis was submitted and interpreted. COMPARISON: Comparison to multiple prior studies sequentially, with oldest reviewed study dated 12/10. BREAST PARENCHYMAL COMPOSITION: The breasts are almost entirely fatty. FINDINGS: There is no evidence of suspicious mass, calcification, or architectural distortion to sugg est malignancy in either breast. There has been no suspicious interval change. IMPRESSION: 1. No mammographic evidence of malignancy. 2. Recommend routine screening mammography in one year. BI-RADS Category 1: Negative Reviewed, dictated and finalized at location A.
== END ==
PROVIDERS: PCP Nurse Practitioner Family; Visit Provider Nurse Practitioner Family
DX: Z12.31 Encounter for screening mammogram for malignant neoplasm of breast (principal)
CPT/HCPCS: 77063; 77067

== ENCOUNTER 2022-08-29 11:55 | Inpatient (IN) | payer MEDICARE, SELFPAY ==
[2022-08-29] VITALS (8 sets, daily range): BP systolic 164–210; BP diastolic 91–108; PULSE 65–86; RESP 14–18; TEMP 36.4–36.9; O2SAT 95–100; BMI 33.1
--- NOTE | ~2022-08-29 | XR_ITS ---
XR chest 1V portable 08/29/2022 12:33 Indication: CVA. Hypertension. Procedure: AP portable chest Comparison: 06/04/2022 Findings: Heart size normal. Bibasilar airspace disease. No pleural effusion or pneumothorax. No acut e osseous abnormality. Impression: 1: Bibasilar airspace disease, suspicious for pneumonia. Reviewed, dictated and finalized at location [] Impression: 1: Bibasilar airspace disease, suspicious for pneumonia.
--- NOTE | ~2022-08-29 | MR_ITS ---
MRI of the brain Clinical History: Confusion Technique: Axial and sagittal T1-weighted images were acquired. These were followed by axial T2-weigh sari, diffusion weighted, gradient, and FLAIR images. Findings: There is no acute infarct, intracranial hemorrhage, or mass lesion. Probable focal chronic lacunar infarct in the left periventricular white matter/left basal ganglia. There are minimal chroni c white matter changes in the periventricular white matter and home. Ventricles and subarachnoid spaces are unremarkable. Orbits are unremarkable. Paranasal sinuses and m astoid air cells are clear. Major intracranial flow voids are intact. Sagittal midline structures are intact. IMPRESSION: No acute intracranial abnormality. Probable chronic lacunar infarct in the left basal ganglia/left periventricular white matter. Minimal chronic microvascular ischemic changes. Reviewed, dictated and finalized at location .
--- NOTE | ~2022-08-29 | CT_ITS ---
EXAMINATION: CT brain wo con DATE: 08/29/2022 12:19 INDICATION: Confusion. TECHNIQUE: Computed tomography (CT) of the head was performed without intravenous contrast. The dose- length product was 605.33 mGy-cm. Automated exposure control and iterative reconstruction technique w ere employed. COMPARISON: None FINDINGS: Generalized atrophy. There are scattered mild periventricular and subcortical white matter changes, most likely related to small vessel ischemic disease (microangiopathy). There is a 4 mm hype rdense mass T2-weighted at the foramen of Monro and upper third ventricle, consistent with colloid cy sts. There is a focal hypodensity in the left basal ganglia, suspicious for age-indeterminate infarct ion. Paranasal sinuses and mastoids are pneumatized. No depressed skull fractures. There are changes of lens replacement surgery. IMPRESSION: 1. Age-indeterminate infarction of the left basal ganglia. Consider correlation with MRI. 2: Hyperdense 4 mm mass situated at the foramen of Conteh and third ventricle, consistent with colloi d cysts. 3: Chronic age-related findings. Reviewed, dictated and finalized at location [] IMPRESSION: 1. Age-indeterminate infarction of the left basal ganglia. Consider correlation with MRI. 2: Hyperdense 4 mm mass situated at the foramen of Conteh and third ventricle, consistent with colloid cysts. 3: Chronic age-related findings.
--- NOTE | ~2022-08-29 | CT_ITS ---
EXAMINATION: CTA brain carotid DATE: 08/29/2022 14:02 CDT INDICATION: Age-indeterminate infarction. TECHNIQUE: Computed tomographic angiography (CTA) of the head was performed without and with 100 mL O mnipaque-350 intravenous contrast. CTA of the neck was performed with intravenous contrast. The dose- length product was 1052.51 mGy-cm. Maximum intensity projection and volume rendered 3D-reconstruction s were created by the technologist on a separate workstation. COMPARISON: CT dated 08/29/2022. FINDINGS: HEAD CTA: There is a dominant left vertebral artery. Right vertebral artery is diminutive. The anteri or, middle and posterior cerebral arteries are symmetric without significant stenosis, occlusion or a neurysm. NECK CTA: The right vertebral artery is diminutive throughout its course no significant atherosclerot ic change. There is 0% stenosis of the proximal right internal carotid artery relative to normal distal artery l umen diameter (NASCET criteria). There is less than 10% stenosis of the proximal left internal caroti d artery relative to normal distal artery lumen diameter. IMPRESSION: 1: No significant vascular abnormality of the head or neck. 2: Diminutive appearance throughout the right vertebral artery, likely developmental. Reviewed, dictated and finalized at location [] IMPRESSION: 1: No significant vascular abnormality of the head or neck. 2: Diminutive appearance throughout the right vertebral artery, likely developm ental.
--- NOTE | 2022-08-29 12:01 | ECG_ITS ---
Measurements Intervals [place] Rate: 70 P: 59 MN: 184 QRS: 11 QRSD: 87 T: 21 QT: 387 QTc: 420 Interpretive Statements SINUS RHYTHM NONSPECIFIC ST & T-WAVE ABNORMALITY ABNORMAL ECG COMPARED TO ECG 06/02/2022 18:31:35 SINUS RHYTHM NOW PRESENT, REPLACES ATRIAL FIBRILLATION Electronically Signed On 08-29-2022 16:05:42 CDT by Hayder Gomez M.D.
--- NOTE | 2022-08-29 12:35 | ED.GENADULT ---
HPI - General Adult General Chief complaint: Neuro Symptoms/Deficit Stated complaint: confusion/bilateral leg weakness x1 week Time Seen by Provider: 08/29/22 12:10 History of Present Illness HPI narrative: 71-year-old female with history of atrial fibrillation, hypertension presenting to the ED for evaluation of increased confusion and bilateral lower extremity weakness. Patient states symptoms started possibly yesterday. Patient states she is also having some difficulty expressing herself. Patient is currently on Eliquis and has been taking the medications. Patient states that she still feels that her symptoms are ongoing. Related Data Home Medications Medication Instructions Recorded Confirmed brinzolamide 1 %-brimonidine 0.2 % 1 drop ophthalmic (eye) BID 05/15/19 08/29/22 eye drops,suspension (Simbrinza) gabapentin 300 mg tablet,extended 300 mg PO TID 05/15/19 08/29/22 release 24 hr propylene glycol 0.6 % eye drops 1 drop ophthalmic (eye) BID PRN 05/15/19 08/29/22 (Systane Balance) Dry Eyes timolol 0.25 % eye drops 1 drop ophthalmic (eye) Q12H 05/15/19 08/29/22 cholecalciferol (vitamin D3) 25 25 mcg PO DAILY 06/09/20 08/29/22 mcg (1,000 unit) capsule peg 400-propylene glycol (PF) 0.4 1 drp EACH EYE Q12H 09/03/21 08/29/22 %-0.3 % eye drops in a dropperette (Systane (PF)) amlodipine 5 mg tablet 5 mg PO DAILY 06/03/22 08/29/22 cyclobenzaprine 10 mg tablet 10 mg PO TID PRN back pain 08/29/22 08/29/22 lisinopril 40 mg tablet 40 mg PO DAILY 08/29/22 08/29/22 melatonin 5 mg capsule 5 mg PO HS 08/29/22 08/29/22 metoprolol tartrate 50 mg tablet 50 mg PO BID 08/29/22 08/29/22 simvastatin 20 mg tablet 20 mg PO DAILY 08/29/22 08/29/22 Allergies Allergy/AdvReac Type Severity Reaction Status Date / Time No Known Allergies Allergy Verified 08/29/22 11:56 Review of Systems Review of Systems: All systems reviewed & are unremarkable except as noted in HPI and below PMFSH Past Medical History Medical History (Updated 08/29/22 @ 22:06 by Cirilo Burnett MD) Arthritis Chronic a-fib DJD (degenerative joint disease) of cervical spine Generalized osteoarthritis of multiple sites Glaucoma Hepatitis C antibody positive in blood Hyperlipidemia Hypertension Rheumatoid arthritis Surgical History Surgical History (Updated 08/29/22 @ 21:35 by Rosa Mcgarry NP) H/O cataract extraction With stent and her eye H/O colonoscopy H/O total hysterectomy S/P excision of neuroma Family History Family History Mother Congestive heart failure (CHF) Father Pulmonary embolism Social History Social History (Updated 08/29/22 @ 21:37 by Rosa Mcgarry NP) Social History: She lives with her Cleve and has 1 daughter. The patient was self-employed. She is a lifelong nonsmoker and she denies alcohol. Code status full code Smoking status: Never smoker Tobacco type: cigarettes Smoking end date: 03/13/97 Alcohol intake: never Drinks per week: 4 Substance use: never Substance use type: does not use Lack of Transportation: No Lack of Food: Never True Current Housing: I Have Housing Concerned About Future Housing: No Difficulty Paying Gas/Electric Bills: No Difficulty Paying for Meds: No Currently Unemployed: No Education: High School Diploma/GED Difficulty w/ Childcare or Family Care: No Living arrangements: with family Additional living arrangements comments: Occupation/Education: retired Gender identity (if verbalized by the patient): Female Spiritual care concerns: No Agree to blood products: No Exam Narrative: APPEARANCE: Well appearing, no pain, no distress, well-nourished. HEAD: normocephalic, atraumatic. EYES: PERRLA/EOMI, conjunctivae clear. NOSE: Normal no drainage EARS:TMS clear with good light reflex. THROAT: Pharynx clear, no exudate. NECK: Supple. No a
[2022-08-29 12:37] LABS: Glucose Point of Care 82 mg/dl (65-105)
[2022-08-29 12:48] LABS: Basophils Percent Auto 0.5 % (0.2-1.2); Eosinophils Absolute Auto 0.1 K/mm3 (0-0.3); Eosinophils Percent Auto 1.5 % (0-4.4); Hematocrit 39.6 % (37.0-47.0); Hemoglobin 12.8 g/dL (12.0-15.0); Immature Granulocyte Absolute 0.03 K/mm3 (0.00-0.031); Immature Granulocyte Percent A 0.5 % (0-0.5); Lymphocytes Absolute Auto 1.02 K/mm3 (0.9-3.2); Lymphocytes Percent Auto 15.6 % (18.3-44.2); Mean Corpuscular HGB Conc 32.3 g/dl (32-36); Mean Corpuscular Hemoglobin 32.2 pg (26-34); Mean Corpuscular Volume 99.7 fl (80-100); Mean Platelet Volume 8.7 fl (7.4-10.4); Monocytes Absolute Auto 0.9 K/mm3 (0.1-0.6); Monocytes Percent Auto 14.3 % (2.6-8.5); Neutrophils Absolute Auto 4.4 K/mm3 (1.3-6.7); Neutrophils Percent Auto 67.6 % (45.5-73.1); Platelet Count Result 260 k/mm3 (150-375); Red Blood Count 3.97 M/mm3 (4.2-5.4); Red Cell Distribution Width 13.4 % (11.5-14.5); White Blood Count 6.5 K/mm3 (4.5-10.0)
[2022-08-29 12:59] LABS: Alanine Aminotransferase 25 U/L (6-35); Albumin Level 4.5 g/dL (3.5-5.1); Alkaline Phosphatase 69 U/L (38-126); Anion Gap 3 mmol/L (8-16); Aspartate Amino Transferase 28 U/L (14-36); Bilirubin,Total 0.6 mg/dL (0.2-1.3); Blood Urea Nitrogen 10 mg/dL (7-17); Calcium 9.4 mg/dL (8.4-10.2); Carbon Dioxide 33 mmol/L (22-30); Chloride 100 mmol/L (98-107); Estimated CRCL calculation 81 ml/min; Estimated Glomerular Filt Rate > 60; Glucose 100 mg/dL (65-110); Potassium 3.7 mmol/L (3.4-5.0); Sodium 136 mmol/L (137-145)
[2022-08-29 13:02] LABS: INR 1.2
[2022-08-29 13:11] LABS: Troponin I < 0.012 ng/mL (0.000-0.034)
[2022-08-29 13:28] LABS: Appearance Urine Cloudy (Clear); Bacteria Urine 1+ /hpf; Bilirubin Urine Negative (Negative); Blood Urine 1+ (Negative); Color Urine Yellow (Yellow); Glucose Urine UA Negative (Negative); Ketones Urine Negative (Negative); Leukocyte Esterase Ur 3+ LEU/UL (Negative); Nitrate Urine Negative (Negative); Non Pathogenic Casts 0-2; Protein Urine Negative (Negative); Specific Grav Ur 1.008 (1.001-1.035); Squamous Epithelial Cell Urine Moderate /hpf (Few); Urobilinogen Urine 0.2 mg/dL (<2.0); WBC Urine 21-50 /hpf
[2022-08-29 13:30] LABS: Add Urine Microscopic? YES
[2022-08-29] MEDS: AZITHROMYCIN 500 MG/NS 250 ML 500 MG/250 ML BAG 250 MG IVPB (14:07)
--- NOTE | 2022-08-29 16:29 | PM.IMHP ---
H&P: HPI History of Present Illness Date/Time: 08/29/22 16:29 Chief Complaint: neuro symptoms Narrative: This is a 71-year-old female patient who has a history of atrial fibrillation and hypertension. The patient came to the emergency room with increased confusion and bilateral lower extremity weakness. Her weakness started yesterday. She was having difficulty expressing herself as well. The patient currently is on Eliquis and has been taking that medication without missing any doses. Her sodium was 136 and was previous 129 on 06/04/2022. Troponin is negative. The patient is positive for UTI. Head CT was read as the following . Age-indeterminate infarction of the left basal ganglia. Consider correlation with MRI. 2: Hyperdense 4 mm mass situated at the foramen of Conteh and third ventricle, consistent with colloid cysts. 3: Chronic age-related findings. Chest x-ray was read as bibasilar airspace disease suspicious for pneumonia The patient was started on Rocephin azithromycin. The patient is being admitted for observation status on date of service of 08/29/2022. Review of Systems Review of Systems: All systems reviewed & are unremarkable except as noted in HPI and below Constitutional: Constitutional: Reports as per HPI and Reports no additional constitutional complaints Eyes: Eyes: Reports as per HPI and Reports no additional eye complaints ENT: Reports system reviewed and no additional complaints, except as documented and Reports Normal hearing present Cardiovascular: Cardiovascular: Reports no additional cardiovascular complaints Respiratory: Respiratory: Reports no additional respiratory complaints and Reports no additional respiratory complaints Gastrointestinal: Gastrointestinal: Reports as per HPI and Reports no additional gastrointestinal complaints Musculoskeletal: Musculoskeletal: Reports no additional musculoskeletal complaints Integumentary/Breasts: Skin/Breast: Reports system reviewed and no additional complaints, except as docu and Reports as per HPI Neurologic: Reports system reviewed and no additional complaints, except as documented, Reports as per HPI and Reports Normal hearing present Psychiatric: Psychiatric: Reports no additional psychiatric complaints and Reports as per HPI Endocrine: Endocrine: Reports no additional endocrine complaints Hematologic/Lymphatic: Hematologic/Lymphatic: Reports no additional hematologic/lymphatic complaints Allergic/Immunologic: Allergic/Immunologic: Reports no additional allergic/immunologic complaints [facility] Past Medical History Medical History (Updated 08/29/22 @ 21:42 by Rosa Mcgarry NP) Arthritis Chronic a-fib DJD (degenerative joint disease) of cervical spine Generalized osteoarthritis of multiple sites Glaucoma Hepatitis C antibody positive in blood Hyperlipidemia Hypertension Rheumatoid arthritis Surgical History Surgical History (Updated 08/29/22 @ 21:35 by Rosa Mcgarry NP) H/O cataract extraction With stent and her eye H/O colonoscopy H/O total hysterectomy S/P excision of neuroma Family History Family History Mother Congestive heart failure (CHF) Father Pulmonary embolism Social History Social History (Updated 08/29/22 @ 21:37 by Rosa Mcgarry NP) Social History: She lives with her Cleve and has 1 daughter. The patient was self-employed. She is a lifelong nonsmoker and she denies alcohol. Code status full code Smoking status: Never smoker Tobacco type: cigarettes Smoking end date: 03/13/97 Alcohol intake: never Drinks per week: 4 Substance use: never Substance use type: does not use Lack of Transportation: No Lack of Food: Never True Current Housing: I Have Housing Concerned About Future Housing: No Difficulty Paying Gas/Electric Bills: No Difficulty Paying for Meds: No Currently Unemployed: No Ed
[2022-08-29] MEDS: APIXABAN 5 MG TABLET PO (21:37)
[2022-08-29] MEDS: GABAPENTIN 300 MG CAPSULE PO (21:37)
[2022-08-29] MEDS: BRIMONIDINE TARTRATE 0.2% OP SOLN 5 ML BTL 1 DROP EACH EYE (21:37)
[2022-08-29] MEDS: METOPROLOL TARTRATE 50 MG TAB PO (21:37)
[2022-08-30] VITALS (14 sets, daily range): BP systolic 143–183; BP diastolic 78–93; PULSE 53–103; RESP 14–18; TEMP 36.2–36.6; O2SAT 95–97
[2022-08-30 06:23] LABS: Basophils Percent Auto 0.4 % (0.2-1.2); Eosinophils Absolute Auto 0.1 K/mm3 (0-0.3); Eosinophils Percent Auto 1.5 % (0-4.4); Hematocrit 38.5 % (37.0-47.0); Hemoglobin 12.5 g/dL (12.0-15.0); Immature Granulocyte Absolute 0.03 K/mm3 (0.00-0.031); Immature Granulocyte Percent A 0.4 % (0-0.5); Lymphocytes Absolute Auto 0.65 K/mm3 (0.9-3.2); Lymphocytes Percent Auto 9.7 % (18.3-44.2); Mean Corpuscular HGB Conc 32.5 g/dl (32-36); Mean Corpuscular Hemoglobin 32.2 pg (26-34); Mean Corpuscular Volume 99.2 fl (80-100); Mean Platelet Volume 9.2 fl (7.4-10.4); Monocytes Absolute Auto 0.9 K/mm3 (0.1-0.6); Monocytes Percent Auto 13.4 % (2.6-8.5); Neutrophils Percent Auto 74.6 % (45.5-73.1); Platelet Count Result 256 k/mm3 (150-375); Red Blood Count 3.88 M/mm3 (4.2-5.4); Red Cell Distribution Width 13.4 % (11.5-14.5); White Blood Count 6.7 K/mm3 (4.5-10.0)
[2022-08-30 06:47] LABS: Lactic Acid Reflex 1.2 mmol/L (0.7-2.0)
[2022-08-30 06:50] LABS: Alanine Aminotransferase 23 U/L (6-35); Albumin Level 4.3 g/dL (3.5-5.1); Alkaline Phosphatase 65 U/L (38-126); Anion Gap 6 mmol/L (8-16); Aspartate Amino Transferase 26 U/L (14-36); Bilirubin,Total 0.6 mg/dL (0.2-1.3); Blood Urea Nitrogen 8 mg/dL (7-17); Carbon Dioxide 30 mmol/L (22-30); Chloride 101 mmol/L (98-107); Estimated CRCL calculation 83 ml/min; Estimated Glomerular Filt Rate > 60; Glucose 93 mg/dL (65-110); Magnesium 1.8 mg/dL (1.6-2.3); Potassium 3.5 mmol/L (3.4-5.0); Sodium 137 mmol/L (137-145)
[2022-08-30] MEDS: hydrALAZINE HCL 20 MG/ML VIAL 10 MG IV PUSH (06:52)
[2022-08-30] MEDS: METOPROLOL TARTRATE 50 MG TAB PO ×2 (09:15→20:21)
[2022-08-30] MEDS: LORazepam (*CRX) 0.5 MG TABLET PO (09:15)
[2022-08-30] MEDS: lisinopriL 20 MG TABLET 40 MG PO (09:15)
[2022-08-30] MEDS: CHOLECALCIFEROL 1,000 UNITS TABLET 1000 UNITS PO (09:16)
[2022-08-30] MEDS: GABAPENTIN 300 MG CAPSULE PO ×3 (09:16→17:24)
[2022-08-30] MEDS: SIMVASTATIN 20 MG TABLET PO (09:17)
[2022-08-30] MEDS: APIXABAN 5 MG TABLET PO ×2 (09:17→20:22)
[2022-08-30] MEDS: BRIMONIDINE TARTRATE 0.2% OP SOLN 5 ML BTL 1 DROP EACH EYE ×2 (09:19→17:23)
--- NOTE | 2022-08-30 09:36 | WPDNEURCNPN ---
Assessment and Plan Assessment and plan (1) AMS (altered mental status): Code(s): R41.82 - Altered mental status, unspecified Status: Acute (2) Pneumonia: Code(s): J18.9 - Pneumonia, unspecified organism Status: Acute (3) UTI (urinary tract infection): Code(s): N39.0 - Urinary tract infection, site not specified Status: Acute (4) Chronic a-fib: Code(s): I48.20 - Chronic atrial fibrillation, unspecified Status: Acute Plan Nicole Sun is a 71 year old female with a history of HTN, HLD, atrial fibrillation (on Eliquis) presenting for evaluation of lower extremity weakness and confusion. Seems to be more generalized weakness and confusion rather than true focal deficits. Etiology could be related to hypertensive encephalopathy vs underlying infection (UTI, PNA). MRI brain is negative for acute stroke. No further neurological work-up needed for now. Consult date: 08/30/22 Reason for consult: Concern for stroke HPI: Nicole Sun is a 71 year old female with a history of HTN, HLD, atrial fibrillation (on Eliquis) presenting for evaluation of lower extremity weakness and confusion. Patient reports that her symptoms started on 08/28. She reported lower extremity weakness and word finding difficulties. She presented to the emergency department on 08/29. Patient reports good compliance with the Eliquis. In the ED her UA was concerning for UTI and CXR was concerning for pneumonia. Her blood pressure was notably elevated to 210/92, but has since then been in the 170-180s without intervention. EKG showed sinus rhythm. In the ED her exam was notable only for some mild uncoordination with finger to thumb touch of left hand. CT head showed age indeterminate infarction of the left basal ganglia. CTA brain/carotid showed diminutive appearance of the right vertebral artery. She was started on azithromycin and Rocephin and subsequently admitted. She takes simvastatin 20mg daily. There is no recent LDL level. She has a history of smoking in the past but is not a current smoker. MRI brain done this morning which was negative for acute infarct but did show a chronic lacunar infarct in the left basal ganglia. Review of Systems Constitutional: Constitutional: Denies chills, Denies fever(s) and Denies weight loss Eyes: Eyes: Denies diplopia and Denies loss of vision ENT: Denies dizziness, Denies hearing loss and Denies tinnitus Cardiovascular: Cardiovascular: Denies chest pain, Denies syncope and Reports dyspnea Respiratory: Respiratory: Denies cough, Denies dyspnea and Denies wheezing Gastrointestinal: Gastrointestinal: Denies abdominal pain, Denies change in bowel habits and Denies vomiting Genitourinary: Genitourinary: Denies urinary incontinence Musculoskeletal: Musculoskeletal: Denies arthralgias and Denies joint swelling Integumentary/Breasts: Skin/Breast: Denies new lesions and Denies rash Neurologic: Reports as per HPI, Denies dizziness, Denies syncope and Denies loss of vision Psychiatric: Psychiatric: Denies anxiety and Denies depression Endocrine: Endocrine: Denies cold intolerance and Denies heat intolerance Hematologic/Lymphatic: Hematologic/Lymphatic: Denies easy bleeding and Denies easy bruising Allergic/Immunologic: Allergic/Immunologic: Denies no additional allergic/immunologic complaints and Denies wheezing PMFSH Past Medical History Medical History Arthritis Chronic a-fib DJD (degenerative joint disease) of cervical spine Generalized osteoarthritis of multiple sites Glaucoma Hepatitis C antibody positive in blood Hyperlipidemia Hypertension Rheumatoid arthritis Surgical History Surgical History H/O cataract extraction With stent and her eye H/O colonoscopy H/O total hysterectomy S/P excision of neuroma Family History Family History (Reviewed 08/29/22 @
[2022-08-30] MEDS: ACETAMINOPHEN 325 MG TABLET 650 MG PO (11:27)
--- NOTE | 2022-08-30 11:37 | PCCARD ---
I spoke to patient's nurse,Kathy regarding previous echo done three months ago, she spoke with Hernan Peña a verbal echocardiogram cancellation was given.
--- NOTE | 2022-08-30 11:48 | PM.IMPN ---
Progress Note: A&P Assessment and Plan (1) Confusion: Code(s): R41.0 - Disorientation, unspecified Status: Acute Assessment and Plan: . Age-indeterminate infarction of the left basal ganglia. MRI performed. Await results. (2) UTI (urinary tract infection): Code(s): N39.0 - Urinary tract infection, site not specified Status: Acute Assessment and Plan: The patient is already on Rocephin. Blood and urine cultures are pending. (3) Pneumonia: Code(s): J18.9 - Pneumonia, unspecified organism Status: Acute Assessment and Plan: The patient is on Rocephin and azithromycin. (4) Rheumatoid arthritis: Code(s): M06.9 - Rheumatoid arthritis, unspecified Status: Acute Assessment and Plan: Continue with home medications. xeljanz is non formula and the patient may need to bring her own. (5) Glaucoma: Code(s): H40.9 - Unspecified glaucoma Status: Acute Assessment and Plan: Continue with her home eye drops of timolol (6) Chronic a-fib: Code(s): I48.20 - Chronic atrial fibrillation, unspecified Status: Acute Assessment and Plan: Continue with patient's diltiazem and Eliquis. (7) Hyperlipidemia: Code(s): E78.5 - Hyperlipidemia, unspecified Status: Acute Assessment and Plan: Continue with heart healthy diet and simvastatin (8) Uncontrolled hypertension: Code(s): I10 - Essential (primary) hypertension Status: Acute Assessment and Plan: Continue with amlodipine, diltiazem, metoprolol and lisinopril. She has p.r.n. hydralazine as well Subjective Date/time seen: 08/30/22 11:48 Interval history: No complaints, feeling better. Exam Const: General: cooperative, healthy appearing, comfortable, no acute distress, well developed, alert, awake, Physically active, average body habitus and well nourished Nutritional Appearance: average body habitus and well nourished Orientation/consciousness: oriented to person, oriented to place, oriented to time and patient oriented x3 Limitations: no limitations HENMT: Head: normal to inspection, No palpable skull fracture present, normocephalic and atraumatic Ears: hearing grossly normal bilaterally and external ears normal Face/Nose/Sinus: Normal external nose present and Normal nares present Eyes: General: appearance normal, both eyes and all related structures Alignment and Position: alignment normal Periorbital: periorbital findings normal Eyelids: eyelids normal Sclera: sclerae normal Pupils: Equal, round and reactive pupils present EOM: EOMs intact bilaterally Neck: Neck: normal visual inspection, full ROM, no lymphadenopathy, trachea midline and supple Chest: Chest palpation & inspection: normal inspection of the chest Resp: Effort & Inspection: normal respiratory effort Auscultation: clear to auscultation bilaterally Cardio: Palpation: normal PMI Rate: regular rate Rhythm: regular rhythm Heart sounds: S1 normal heart sound present and S2 normal heart sound present Peripheral pulses: Peripheral pulses 2+ throughout GI: Inspection: normal to inspection Auscultation: normal bowel sounds Rectal Exam: deferred Back/Spine/Pelvis: Cervical Spine: cervical ROM normal Skin: General skin exam: normal color Lesions: no lesions Rashes: no rashes Trauma: no lacerations or abrasions Wounds: no wounds Hair: normal Nails: normal Neuro: General: oriented to person, oriented to place, oriented to time and patient oriented x3 Cranial nerves: Yes Equal, round and reactive pupils present and Yes Normal hearing present Cognition (Neuro): normal cognition Speech: normal speech Gait exam (Neuro): Normal gait present Motor exam (neuro): 5/5 motor strength present throughout Sensory Exam: normal sensation Extrem: General: normal to inspection Right upper extremity: normal to inspection and shoulder/upper arm Left upper extremity: normal to ins
[2022-08-30] MEDS: AZITHROMYCIN 500 MG/NS 250 ML 500 MG/250 ML BAG 250 MG IVPB (13:46)
[2022-08-30] MEDS: BRINZOLAMIDE 1% OPHTH SUSP 10 ML 1 DROP EACH EYE (17:23)
--- NOTE | 2022-08-30 19:56 | PC.NURSE ---
pt requiring sleeping pill, 3 mg PO melatonin Po ordered this shift per [employer] AND TRIMMER Malgorzata
[2022-08-30] MEDS: ARTIFICIAL TEARS OPHTH SOLN 15 ML BOTTLE 1 DROP EACH EYE (20:21)
[2022-08-30 20:42] LABS: Glucose Point of Care 103 mg/dl (65-105)
[2022-08-30] MEDS: MELATONIN 3 MG TABLET PO (22:47)
[2022-08-31] VITALS: PULSE 76
[2022-08-31 04:00] VITALS: PULSE 74
[2022-08-31] MEDS: hydrALAZINE HCL 20 MG/ML VIAL 10 MG IV PUSH (05:09)
[2022-08-31 05:10] VITALS: BP 186/84; PULSE 82; RESP 16; TEMP 36.6; O2SAT 94
[2022-08-31 08:30] VITALS: O2SAT 95
[2022-08-31] MEDS: GABAPENTIN 300 MG CAPSULE PO (09:10)
[2022-08-31 09:11] VITALS: PULSE 87
[2022-08-31] MEDS: METOPROLOL TARTRATE 50 MG TAB PO (09:11)
[2022-08-31] MEDS: lisinopriL 20 MG TABLET 40 MG PO (09:11)
[2022-08-31] MEDS: CHOLECALCIFEROL 1,000 UNITS TABLET 1000 UNITS PO (09:13)
[2022-08-31] MEDS: APIXABAN 5 MG TABLET PO (09:13)
[2022-08-31] MEDS: amLODIPine BESYLATE 5 MG TABLET 10 MG PO (09:13)
[2022-08-31] MEDS: SIMVASTATIN 20 MG TABLET PO (09:13)
[2022-08-31] MEDS: BRIMONIDINE TARTRATE 0.2% OP SOLN 5 ML BTL 1 DROP EACH EYE (09:14)
[2022-08-31] MEDS: ARTIFICIAL TEARS OPHTH SOLN 15 ML BOTTLE 1 DROP EACH EYE (09:14)
--- NOTE | 2022-08-31 10:52 | PM.DS ---
DS: Admitting Diagnosis Discharge Date 08/31/2022 Admitting Diagnosis Altered mental status DS: Discharge Diagnosis Discharge Diagnosis (1) AMS (altered mental status): Code(s): R41.82 - Altered mental status, unspecified Status: Acute (2) Acute CVA (cerebrovascular accident): Code(s): I63.9 - Cerebral infarction, unspecified Status: Acute (3) Pneumonia: Code(s): J18.9 - Pneumonia, unspecified organism Status: Acute (4) Abnormal finding on urinalysis: Code(s): R82.90 - Unspecified abnormal findings in urine Status: Acute DS: Summary Hospital Course Hospital Course: Assessment and Plan (1) Confusion: ?Code(s): R41.0 - Disorientation, unspecified ?Status:?Acute ?Assessment and Plan: CT scan shows. Age-indeterminate infarction of the left basal ganglia.? MRI negative for any acute findings (2) UTI (urinary tract infection): ?Code(s): N39.0 - Urinary tract infection, site not specified ?Status:?Acute ?Assessment and Plan: Patient treated with Rocephin initially. Now on Augmentin (3) Pneumonia: ?Code(s): J18.9 - Pneumonia, unspecified organism ?Status:?Acute ?Assessment and Plan: The patient is on Rocephin and azithromycin. Now on Augmentin (4) Rheumatoid arthritis: ?Code(s): M06.9 - Rheumatoid arthritis, unspecified ?Status:?Acute ?Assessment and Plan: Continue with home medications. xeljanz is non formula and the patient may need to bring her own. (5) Glaucoma: ?Code(s): H40.9 - Unspecified glaucoma ?Status:?Acute ?Assessment and Plan: Continue with her home eye drops of timolol (6) Chronic a-fib: ?Code(s): I48.20 - Chronic atrial fibrillation, unspecified ?Status:?Acute ?Assessment and Plan: Continue with patient's diltiazem and Eliquis. (7) Hyperlipidemia: ?Code(s): E78.5 - Hyperlipidemia, unspecified ?Status:?Acute ?Assessment and Plan: Continue with heart healthy diet and simvastatin (8) Uncontrolled hypertension: ?Code(s): I10 - Essential (primary) hypertension ?Status:?Acute ?Assessment and Plan: Continue with amlodipine, diltiazem, metoprolol and lisinopril.? Patient is clinically back to baseline mental status and is being discharged home Time Spent with Patient Time attestation: Total time spent providing and/or coordinating discharge services: DS: Data Data Completed and Pending Labs on day of discharge: Labs from last 24 hours 08/30/22 20:28 POC Capillary Glucose 103 Preliminary micro results at discharge 08/29/22 13:16 Blood Culture - Preliminary Blood 08/29/22 14:12 Blood Culture - Preliminary Blood Discharge Plan Discharge Consulting providers: Stefani Lai Discharging Clinician: Franco Galo Anticipated Discharge Date/Time: 08/31/22 08:39 Patient Disposition: Home, Self-Care Activity: no preference Diet: heart healthy Patient Instructions: Antibiotic Form Stand Alone Forms: General Discharge Information Follow-up/Referrals: Marlen,Anjali Colon FACILITY SUPERVISOR- [Primary Care Provider] - Discharge Medications: New amoxicillin-pot clavulanate 875-125 mg tablet 1 tablet PO Q12H Qty: 10 0RF Continued Systane (PF) 0.4-0.3 % dropperette 1 drp EACH EYE Q12H cholecalciferol (vitamin D3) 25 mcg (1,000 unit) capsule 25 mcg PO DAILY Eliquis 5 mg Tablet 5 mg PO Q12HR 30 Days Qty: 60 0RF diltiazem HCl 180 mg Capsule,Ext.Rel 24h Degradable 360 mg PO QAM 30 Days Qty: 60 0RF cyclobenzaprine 10 mg tablet 10 mg PO TID PRN (Reason: back pain) simvastatin 20 mg tablet 20 mg PO DAILY metoprolol tartrate 50 mg tablet 50 mg PO BID lisinopril 40 mg tablet 40 mg PO DAILY melatonin 5 mg Capsule 5 mg PO HS gabapentin 300 mg tablet extended release 24 hr 300 mg PO TID timolol 0.25 % drops 1 drop EACH
== END 2022-08-31 11:30 | disposition home or self-care (01) | DRG 194 ==
LOC: ANHED 12:33 → ANH3MEDSUR 15:43
PROVIDERS: Emergency Medicine; Nurse Practitioner; Admitting Provider Chiropractor; Emergency Provider Emergency Medicine; PCP Nurse Practitioner Family; Visit Provider Hospitalist
DX: J18.9 Pneumonia, unspecified organism (principal); I48.20 Chronic atrial fibrillation, unspecified; N39.0 Urinary tract infection, site not specified; R41.0 Disorientation, unspecified; I10 Essential (primary) hypertension; H40.9 Unspecified glaucoma; E78.5 Hyperlipidemia, unspecified; M06.9 Rheumatoid arthritis, unspecified; M47.812 Spondylosis without myelopathy or radiculopathy, cervical region; M15.9 Polyosteoarthritis, unspecified; Z86.73 Personal history of transient ischemic attack (TIA), and cerebral infarction without residual deficits; Z79.01 Long term (current) use of anticoagulants
CPT/HCPCS: 36415; 70450; 70496; 70498; 70551; 71045; 80053; 81001; 82948; 83605; 83735; 84443; 84484; 85025; 85610; 85730; 87040; 87086; 87088; 93005; 96365; 96367; 96375; 96376; 99285; A9270; G0378; J0360; J0456; J0696; Q9967

== ENCOUNTER 2023-04-17 08:40 | Emergency (ER) | payer MEDICARE, SELFPAY ==
[2023-04-17 08:51] VITALS: BP 178/78; PULSE 49; RESP 16; TEMP 36.5; O2SAT 100
--- NOTE | 2023-04-17 09:14 | ED.ABDPAIN ---
HPI - Abdominal Pain General Chief Complaint: Abdominal Pain Stated Complaint: Hypertension and Lower Stomach Pain Time Seen by Provider: 04/17/23 08:55 Source: patient Mode of arrival: ambulatory Limitations: no limitations History of Present Illness HPI narrative: Nicole is a 72-year-old female patient presenting to the clinic today with complaints of right lower quadrant abdominal pain and high blood pressure. She reports she does not take her blood pressure regularly but noticed it was high this morning when she took it. She take the Toprol, Cardizem, and lisinopril for her hypertension/AFib. She denies any chest pain, shortness of breath, headache, visual changes, or dizziness at this time. States her blood pressure always seems to be high when she takes it. Has not been able to follow-up with her primary care doctor since her primary care doctor moved to another clinic. She is reporting the reason for her coming in today is for right and lower quadrant right lower back pain that has been going on for 3 weeks. She denies any fever or chills. She denies any urinary symptoms, nausea, vomiting, or diarrhea. Last bowel movement was today and normal for the patient. Denies any blood in her stool. Still has her appendix. History of total hysterectomy. Rates pain currently a 08/20. Related Data Home Medications Medication Instructions Recorded Confirmed brinzolamide 1 %-brimonidine 0.2 % 1 drop ophthalmic (eye) BID 05/15/19 04/17/23 eye drops,suspension (Simbrinza) gabapentin 300 mg tablet,extended 300 mg PO TID 05/15/19 04/17/23 release 24 hr propylene glycol 0.6 % eye drops 1 drop ophthalmic (eye) BID PRN 05/15/19 04/17/23 (Systane Balance) Dry Eyes timolol 0.25 % eye drops 1 drop ophthalmic (eye) Q12H 05/15/19 04/17/23 cholecalciferol (vitamin D3) 25 25 mcg PO DAILY 06/09/20 04/17/23 mcg (1,000 unit) capsule cyclobenzaprine 10 mg tablet 10 mg PO TID PRN back pain 08/29/22 04/17/23 lisinopril 40 mg tablet 40 mg PO DAILY 08/29/22 04/17/23 melatonin 5 mg capsule 5 mg PO HS 08/29/22 04/17/23 metoprolol tartrate 50 mg tablet 50 mg PO BID 08/29/22 04/17/23 simvastatin 20 mg tablet 20 mg PO DAILY 08/29/22 04/17/23 Allergies Allergy/AdvReac Type Severity Reaction Status Date / Time No Known Allergies Allergy Verified 04/17/23 08:54 Review of Systems Review of Systems: Pertinent positives per HPI. Patient denies any fever, chills, rash, headache, visual changes, dizziness, cough, runny nose, sore throat, shortness of breath, chest pain, palpitations, nausea, vomiting, diarrhea, constipation, abdominal pain, or any urinary issues. [facility] Past Medical History Medical History Arthritis Chronic a-fib DJD (degenerative joint disease) of cervical spine Generalized osteoarthritis of multiple sites Glaucoma Hepatitis C antibody positive in blood Hyperlipidemia Hypertension Rheumatoid arthritis Surgical History Surgical History H/O cataract extraction With stent and her eye H/O colonoscopy H/O total hysterectomy S/P excision of neuroma Family History Family History Mother Congestive heart failure (CHF) Father Pulmonary embolism Social History Social History Social History: She lives with her Cleve and has 1 daughter. The patient was self-employed. She is a lifelong nonsmoker and she denies alcohol. Code status full code Smoking status: Never smoker Tobacco type: cigarettes Smoking end date: 03/13/97 Alcohol intake: never Drinks per week: 4 Substance use: never Substance use type: does not use Lack of Transportation: No Lack of Food: Never True Current Housing: I Have Housing Concerned About Future Housing: No Difficult
== END 2023-04-17 09:23 | disposition home or self-care (01) ==
PROVIDERS: Emergency Provider Nurse Practitioner Family; PCP Nurse Practitioner Family
DX: N39.0 Urinary tract infection, site not specified (principal); I10 Essential (primary) hypertension; R10.31 Right lower quadrant pain; M54.50 Low back pain, unspecified; I48.20 Chronic atrial fibrillation, unspecified; M47.812 Spondylosis without myelopathy or radiculopathy, cervical region; M15.9 Polyosteoarthritis, unspecified; H40.9 Unspecified glaucoma; E78.5 Hyperlipidemia, unspecified; M06.9 Rheumatoid arthritis, unspecified; Z87.891 Personal history of nicotine dependence
CPT/HCPCS: 81003; 87086; 99213; G0463

== ENCOUNTER 2023-12-01 13:44 | Outpatient (CLI) | payer MEDICARE, SELFPAY ==
[2023-12-01 15:56] LABS: Basophils Percent Auto 0.3 % (0.2-1.2); Eosinophils Absolute Auto 0.2 K/mm3 (0-0.3); Eosinophils Percent Auto 1.8 % (0-4.4); Hematocrit 41.3 % (37.0-47.0); Hemoglobin 13.5 g/dL (12.0-15.0); Immature Granulocyte Absolute 0.03 K/mm3 (0.00-0.031); Immature Granulocyte Percent A 0.3 % (0-0.5); Lymphocytes Absolute Auto 1.44 K/mm3 (0.9-3.2); Lymphocytes Percent Auto 16.2 % (18.3-44.2); Mean Corpuscular HGB Conc 32.7 g/dl (32-36); Mean Corpuscular Hemoglobin 32.2 pg (26-34); Mean Corpuscular Volume 98.6 fl (80-100); Mean Platelet Volume 9.8 fl (7.4-10.4); Monocytes Percent Auto 11.7 % (2.6-8.5); Neutrophils Absolute Auto 6.2 K/mm3 (1.3-6.7); Neutrophils Percent Auto 69.7 % (45.5-73.1); Platelet Count Result 265 k/mm3 (150-375); Red Blood Count 4.19 M/mm3 (4.2-5.4); Red Cell Distribution Width 12.1 % (11.5-14.5); White Blood Count 8.9 K/mm3 (4.5-10.0)
[2023-12-01 15:59] LABS: Add Urine Microscopic? YES; Appearance Urine Clear (Clear); Bacteria Urine None Seen /hpf; Bilirubin Urine Negative (Negative); Blood Urine 1+ (Negative); Color Urine Yellow (Yellow); Glucose Urine UA Negative (Negative); Ketones Urine Negative (Negative); Leukocyte Esterase Ur 3+ LEU/UL (Negative); Nitrate Urine Negative (Negative); Non Pathogenic Casts 0-2; Protein Urine Negative (Negative); Specific Grav Ur 1.009 (1.001-1.035); Squamous Epithelial Cell Urine Few /hpf (Few); Urobilinogen Urine 0.2 mg/dL (<2.0)
[2023-12-01 16:07] LABS: INR 1.1; Prothrombin Time 14.6 Seconds (11.1-14.7)
[2023-12-01 16:08] LABS: Partial Thromboplastin Time 30.2 Seconds (22.3-36.8)
[2023-12-01 17:01] LABS: Hemoglobin A1C 5.8 % (<5.7)
[2023-12-01 17:10] LABS: MRSA (PCR) NOT DETECTED (NOT DETECTE)
[2023-12-01 17:21] LABS: Urine Cotinine NEGATIVE
== END 2023-12-01 13:45 | disposition home or self-care (01) ==
PROVIDERS: PCP Nurse Practitioner Family; Visit Provider Orthopaedic Surgery
DX: M17.11 Unilateral primary osteoarthritis, right knee (principal); Z01.818 Encounter for other preprocedural examination
CPT/HCPCS: 80307; 81001; 83036; 85025; 85610; 85730; 86850; 86900; 86901; 87086; 87088; 87641

== ENCOUNTER 2023-12-13 01:30 | Day surgery (SDC) | payer MEDICARE, SELFPAY ==
[2023-12-01 14:23] VITALS: BP 168/86; PULSE 55; RESP 16; TEMP 37.1; O2SAT 100; BMI 33.3
--- NOTE | 2023-12-01 14:35 | PC.NURSE ---
Addendum entered by Rosa Jones RN 12/01/23 14:44: Pt given these instructions in person [facility] Original Note: Report to the Outpatient Waiting Room, entrance under the green pavilion located off [facility], at time _08:30am____on date _12/13/23 . Planned Procedure Time: ___10:30am .? Time changes happen often and if your time is changed the preop area will call you the afternoon before. - You and your visitor will be asked to self-screen and do not enter if you have any COVID symptoms. Please call surgeon if you need to reschedule. - A mask is optional within the hospital at this time. Patients may have clear liquids (water, carbonated beverages, clear teas, apple juice) until 3 hours prior to surgery ( 0730am) with a maximum of 20 ounces. - No food from midnight until time of surgery and no smoking Take only the following medications with a SIP of water on the morning of surgery: __Metoprolol, and Gabapentin. Tylenol as needed for pain DO NOT STOP ANY OF YOUR OTHER PRESCRIPTION MEDICATIONS PRIOR TO SURGERY EXCEPT THE FOLLOWING Medications to discontinue per physician __Hold Eliquis for 3 days prior to surgery per Cardiology Date to take last dose____12/09/23 Hold all vitamins and supplements for 3 days prior to surgery per Anesthesia.Date to take last dose is 12/09/23 Hold Rinvoq for 1 week prior to surgery per Rheumatoid Dr. Date to take last dose is 12/05/22 Please no make-up, nail danish, hairspray, perfume, deodorant, or body powder the day of surgery.? No jewelry (including any body piercings) or valuables the day of surgery, leave them at home.? Please take a shower or bath the night before, or the morning of, surgery with an antibacterial soap.? Wear comfortable, loose fitting clothing.? Children are encouraged to wear pajamas. - Jewelry must be removed prior to entering the operating room.? Rings and piercings that are not removed may be cut off. - The hospital will not accept responsibility for valuables.? - Please leave all valuables, including medications, at home the day of surgery. If you are going home after surgery, a licensed truck driver salesperson must drive you home.? - NO public transportation without another adult if you receive anesthesia. - We recommend that an adult stay with you for 24 hours following discharge. - We also recommend that you do not drive, make important decision, drink alcoholic beverages, or take any drugs that were not prescribed by your health care provider for at least 24 hours after your discharge time. Follow any additional instructions given to you from your surgeon. Telephone instructions given to and asked if any additional questions and then verbalized understanding. Patient advised to call surgeon office or pre surgery nurse liaison [phone] if any additional questions.
[2023-12-13] VITALS (18 sets, daily range): BP systolic 128–164; BP diastolic 64–83; PULSE 50–88; RESP 12–20; TEMP 35.6–37; O2SAT 92–99
--- NOTE | ~2023-12-13 | XR_ITS ---
[id number] Ordering provider: Patrick Chacko MD History: . POST OP RIGHT TOTAL KNEE . Comparison: None. FINDINGS: BONES: No acute fracture or dislocation. JOINT SPACES: Total knee arthroplasty. SOFT TISSUES: Postoperative changes in the skin and subcutaneous tissues. IMPRESSION: No acute osseous abnormality right knee. Total knee arthroplasty. Reviewed, dictated and finalized at location A.
--- NOTE | 2023-12-13 07:20 | WPDHPUPDATE1 ---
History and Physical Update Update Date/Time: 12/13/23 07:20 History and Physical has been reviewed, including an updated exam of the patient. There are NO changes in the patient's condition. Risks, benefits, and alternatives have been discussed and questions answered. Patient agrees to proceed with procedure.
--- NOTE | 2023-12-13 07:21 | WPDHPUPDATE1 ---
History and Physical Update Update Date/Time: 12/13/23 07:21 History and Physical has been reviewed, including an updated exam of the patient. There are NO changes in the patient's condition. Risks, benefits, and alternatives have been discussed and questions answered. Patient agrees to proceed with procedure.
[2023-12-13] MEDS: ACETAMINOPHEN 500 MG TABLET 1000 MG PO (08:40)
[2023-12-13] MEDS: LACTATED RINGERS 1,000 ML 30 ML IV CONT ×2 (08:57→13:15)
[2023-12-13] MEDS: TRANEXAMIC ACID 1,000MG/ISO100 1,000 MG/100 ML BAG 200 MG IVPB (10:34)
--- NOTE | 2023-12-13 11:03 | WPDANESEPPF ---
Anes - Initial Pre Proc Eval Procedure: Operation Date: 12/13/23 10:30 Proposed Procedures p Right Total Knee Arthroplasty - Patrick Chacko MD Date/Time: 12/13/23 11:03 Surgeon: Patrick Chacko MD Pre Op Diagnosis: Rt Knee DJD Patient Data Age: 73 Gender: F Height: 1.63 m Weight: 87 kg Last Vital Signs Temp 97.3 F L 12/13/23 09:23 Pulse 50 L 12/13/23 09:23 Resp 16 12/13/23 09:23 BP 137/70 12/13/23 09:23 Pulse Ox 97 12/13/23 09:23 O2 Del Method Room Air 12/13/23 09:23 Allergies Allergy/AdvReac Type Severity Reaction Status Date / Time No Known Allergies Allergy Verified 12/13/23 08:35 Home Medications Medication Instructions Recorded Confirmed Type propylene glycol 0.6 % eye drops 1 drop ophthalmic (eye) BID PRN 05/15/19 12/01/23 History (Systane Balance) Dry Eyes cholecalciferol (vitamin D3) 25 25 mcg PO DAILY 06/09/20 12/01/23 History mcg (1,000 unit) capsule apixaban 5 mg tablet (Eliquis) 5 mg PO Q12HR 30 days #60 tabs 06/04/22 12/13/23 Rx lisinopril 40 mg tablet 40 mg PO DAILY 08/29/22 12/01/23 History metoprolol tartrate 50 mg tablet 50 mg PO BID 08/29/22 12/13/23 History tizanidine 2 mg tablet 2 mg PO TID PRN muscle spasticity 05/05/23 12/01/23 Rx #90 tabs rosuvastatin 10 mg tablet 10 mg PO DAILY #90 tabs 06/20/23 12/01/23 Rx gabapentin 300 mg capsule 300 mg PO TID #270 caps 09/22/23 12/13/23 Rx upadacitinib 15 mg tablet,extended 15 mg PO DAILY #1 tablet 11/24/23 12/13/23 Rx release 24 hr (Rinvoq) biotin 500 mcg capsule 500 mcg PO DAILY 12/01/23 12/01/23 History brinzolamide 1 %-brimonidine 0.2 % 1 drp EACH EYE TID 12/01/23 12/01/23 History eye drops,suspension (Simbrinza) carboxymethylcellulose 0.5 1 drp ophthalmic (eye) TID 12/01/23 12/01/23 History %-glycerin 0.9 % (PF) eye drops (Refresh Relieva PF) melatonin 5 mg capsule 10 mg PO HS 12/04/23 History spironolactone 25 mg tablet 25 mg PO BID 12/04/23 History sulfamethoxazole 800 1 tablet PO Q12H UTI #20 tabs 12/04/23 Rx mg-trimethoprim 160 mg tablet (Bactrim DS) chlorhexidine gluconate 4 % 1 applic topical ONCE #237 mL 12/06/23 Rx topical liquid (Hibiclens) Patient hx anesthesia problems: none Family hx anesthesia problems: none Results Review: All pre-operative results and documents have been reviewed as part of the pre-operative evaluation. [facility] Past Medical History Medical History Arthritis Chronic a-fib Diverticulosis DJD (degenerative joint disease) of cervical spine Generalized osteoarthritis of multiple sites Glaucoma Hair loss Hepatitis C antibody positive in blood Hospital discharge follow-up Hyperlipidemia Hypertension Rheumatoid arthritis Wears glasses Surgical History Surgical History H/O cataract extraction With stent and her eye H/O colonoscopy H/O total hysterectomy History of foot surgery Performing surgeon: Mary S/P excision of neuroma Family History Family History Mother Congestive heart failure (CHF) Diabetes mellitus Heart disease Thyroid disease Father Pulmonary embolism Cancer Diabetes mellitus Unknown Arthritis Social History Social History Social History: She lives with her Cleve and has 1 daughter. The patient was self-employed. Code status full code 11/17/23 Very confident with medical forms Smoking packs per day: 1 Smoking cigarettes per day: 20.0 Years smoked: 20 Smoking pack-years: 20.00 Smoking status: Former smoker Tobacco type: cigarettes Smoking end date: 06/25/97 Alcohol intake: current Drinks per week: 1 Alcohol use details: social Substance use: never Substance use type: does not use [employer]
--- NOTE | 2023-12-13 11:13 | WPDANESPNB ---
Anes - Peripheral Nerve Block Date/Time: 12/13/23 11:13 I have discussed with the patient/family/POA the placement of a peripheral nerve block for post-operative pain management, including associated risks, benefits, complications, and side effects. Alternative methods of post-operative analgesia were detailed. Questions were solicited and answers provided to the satisfaction of the patient/family/POA. Time-Out: A pre-procedural Time-Out was completed immediately before starting the procedure and confirmed: Patient Identification, Site, Procedure, Patient Position and the Availability of Requisite Equipment. Clinical Indications: Acute post-operative pain management requested by the operative surgeon. Nerve Block Insertion Note Anes-nerve block: adductor canal Patient position: supine Skin prep: chlorhexidine Needle: 22 gauge, stimulating, insulated echogenic needle. Needle length: 80 mm Technique: ultrasound Injectate: other (Bupiv 0.5% 12 mls. ) Observations: tolerated well Complications: none Procedure start time:: 1105 Procedure end time:: 1111
[2023-12-13] MEDS: ceFAZolin 2 GM/D5W 50 ML 2 GM/50 ML BAG IVPB ×2 (11:30→20:35)
[2023-12-13] MEDS: SODIUM CHLORIDE 0.9% IV 37.7 ML, MORPHINE SULFATE INJ (*CRX) 2 MG, ROPivacaine HCL 1% 2... INFILTRATE (11:35)
[2023-12-13] MEDS: TRANEXAMIC ACID 1,000 MG/10 ML AMPUL 1000 MG IV PUSH (12:50)
--- NOTE | 2023-12-13 13:07 | W.PM.PROC2 ---
Procedure Note - Detailed Date of Procedure 12/13/23 Pre-op Diagnosis Rt Knee DJD Post-op Diagnosis Same Procedure Performed R TKA Surgeon Patrick Chacok MD Anesthesia General Description of Procedure THE RIGHT KNEE WAS PREPPED AND DRAPED IN THE STERILE FASHION. A MIDLINE SKIN INCISION WAS MADE. A MEDIAL PARAPATELLAR ARTHROTOMY WAS MADE. THE PATELLA WAS EVERTED. THERE WAS TRICOMPARTMENT DJD. THERE WAS MINIMAL PATELLA DJD. AN INTRAMEDULLARY ROCKY WAS PLACED IN THE FEMUR. A DISTAL FEMORAL CUT WAS MADE IN 5 DEGREES OF VALGUS REMOVING APPROXIMATELY 9 MM OF BONE FROM THE DISTAL FEMUR. THE FEMUR WAS SIZED TO 62.5. A 62.5 FEMORAL CUTTING BLOCK WAS PLACED IN 3 DEGREES OF EXTERNAL ROTATION AND IN ALIGNMENT WITH RICK'S LINE AND THE TRANSEPICONDYLAR AXIS. ANTERIOR POSTERIOR AND CHAMFER CUTS WERE MADE. THE CUTS WERE EXCELLENT. NEXT AN INTRAMEDULLARY CUTTING GUIDE WAS PLACED IN THE TIBIA. A TRANS TIBIAL CUT WAS MADE ALONG THE LONG AXIS OF THE TIBIA. APPROXIMATELY 10 MM OF BONE WAS REMOVED FROM THE HIGH SIDE OF THE TIBIA. THE TIBIA WAS THEN PLANED TO A SMOOTH SURFACE. POSTERIOR FEMORAL OSTEOPHYTES WERE REMOVED FROM THE FEMORAL CONDYLES. A 71 TIBIAL TRIAL WAS PLACED IN ALIGNMENT WITH THE 1/3 MEDIAL ASPECT OF THE TIBIAL TUBERCLE. THEN A 62.5 FEMORAL TRIAL COMPONENT WAS PLACED. BOTH HAD EXCELLENT FITS. EVENTUALLY A 10 MM CR POLYETHYLENE TRIAL COMPONENT WAS PLACED. THE KNEE WAS TAKEN THROUGH A RANGE OF MOTION. THE KNEE CAME OUT TO FULL EXTENSION. THERE WAS NO ABNORMAL TILT TO THE PATELLA. THERE WAS GOOD A/P AND VARUS/VALGUS STABILITY. THERE WAS NO EXCESSIVE ROLL BACK WITH FLEXION. THE TRIAL COMPONENTS WERE REMOVED. THEN A 62.5 FEMORAL COMPONENT AND 71 TIBIAL COMPONENT WITH A 10 CR POLYETHYLENE COMPONENT WERE CEMENTED INTO PLACE. ONCE THE CEMENT WAS HARD THE KNEE WAS TAKEN THROUGH A ROM AGAIN AND FOUND TO BE STABLE WITH NO PATELLA TILT NO EXCESSIVE ROLL BACK WITH FLEXION AND GOOD STABILITY WITH COMPLETE AND FULL EXTENSION. THE KNEE WAS IRRIGATED WITH STERILE BETADINE AND WATER FOR ABOUT 3 MINUTES. THE BLEEDERS WERE CAUTERIZED. THE ARTHROTOMY WAS REPAIRED WITH NUMBER 1 VICRYL. THE SUB CUTANEOUS LAYER WITH 2-0 VICRYL AND THE SKIN WITH MAYDA. THE WOUND WAS WASHED AND A STERILE DRESSING WAS APPLIED. PATIENT WAS EXTUBATED. Estimated Blood Loss -150.0 Pathology None sent Complications No immediate complications Condition Stable Disposition PACU
[2023-12-13] MEDS: fentaNYL CITRATE INJ (*CRX) 100 MCG/2 ML VIAL 25 MCG IV PUSH ×5 (13:32→14:28)
[2023-12-13] MEDS: ONDANSETRON INJ 4 MG/2 ML VIAL IV PUSH (13:47)
[2023-12-13] MEDS: diphenhydrAMINE HCl INJ 50 MG/ML VIAL 12.5 MG IV PUSH ×2 (14:00→14:18)
--- NOTE | 2023-12-13 15:49 | ADMGEN ---
This patient, Nicole Sun, was admitted to [facility] Room 315-02. Patient/family oriented to hospital policies and general routines including ID bracelet, bed and alarms, visiting hours, pain management, procedures, bathroom and other care routines, personal items, smoking policy, room service/diet, and visiting hours. Information on how to activate the Rapid Response Team has been discussed. Patient/Family are encouraged to report perceived risks to care and to ask questions if they do not understand what they are told or what they should do.
[2023-12-13] MEDS: SENNA/DOCUSATE SODIUM TABLET 2 TAB PO (16:17)
[2023-12-13] MEDS: GABAPENTIN 300 MG CAPSULE PO ×2 (16:18→16:22)
[2023-12-13] MEDS: CELECOXIB 200 MG CAPSULE PO (16:18)
[2023-12-13] MEDS: SODIUM CHLORIDE 0.9% IV 1,000 ML 125 ML IV CONT (16:18)
[2023-12-13] MEDS: oxyCODONE/ACETAMINOPHEN (*CRX) 5-325 MG TABLET 1 TABLET PO (16:19)
[2023-12-13] MEDS: APIXABAN 2.5 MG TABLET PO (20:36)
[2023-12-13] MEDS: METOPROLOL TARTRATE 50 MG TAB PO (20:36)
[2023-12-13] MEDS: FAMOTIDINE 20 MG TABLET PO (20:37)
[2023-12-13] MEDS: ACETAMINOPHEN 500 MG TABLET PO (20:45)
[2023-12-13] MEDS: diphenhydrAMINE HCl INJ 50 MG/ML VIAL 25 MG IV PUSH (20:46)
[2023-12-14 00:39] VITALS: BP 158/90; PULSE 70; RESP 12; TEMP 36.4; O2SAT 96
[2023-12-14] MEDS: IBUPROFEN IV 800 MG/200 ML 800 MG/200 ML BAG 400 MG IVPB (01:26)
[2023-12-14] MEDS: ceFAZolin 2 GM/D5W 50 ML 2 GM/50 ML BAG IVPB ×2 (03:59→11:14)
[2023-12-14 04:43] VITALS: BP 146/80; PULSE 59; RESP 12; TEMP 36.3; O2SAT 96
[2023-12-14 07:13] LABS: Basophils Percent Auto 0.3 % (0.2-1.2); Eosinophils Percent Auto 0.1 % (0-4.4); Hematocrit 38.4 % (37.0-47.0); Hemoglobin 12.2 g/dL (12.0-15.0); Immature Granulocyte Absolute 0.06 K/mm3 (0.00-0.031); Immature Granulocyte Percent A 0.4 % (0-0.5); Lymphocytes Absolute Auto 0.93 K/mm3 (0.9-3.2); Lymphocytes Percent Auto 6.2 % (18.3-44.2); Mean Corpuscular HGB Conc 31.8 g/dl (32-36); Mean Corpuscular Hemoglobin 31.5 pg (26-34); Mean Corpuscular Volume 99.2 fl (80-100); Monocytes Absolute Auto 1.4 K/mm3 (0.1-0.6); Monocytes Percent Auto 9.6 % (2.6-8.5); Neutrophils Absolute Auto 12.5 K/mm3 (1.3-6.7); Neutrophils Percent Auto 83.4 % (45.5-73.1); Platelet Count Result 233 k/mm3 (150-375); Red Blood Count 3.87 M/mm3 (4.2-5.4); Red Cell Distribution Width 12.3 % (11.5-14.5); White Blood Count 14.9 K/mm3 (4.5-10.0)
[2023-12-14 07:25] LABS: Sodium 130 mmol/L (137-145)
[2023-12-14 07:26] LABS: Anion Gap 8 mmol/L (4-12); Blood Urea Nitrogen 19 mg/dL (7-17); Calcium 8.7 mg/dL (8.4-10.2); Carbon Dioxide 25 mmol/L (22-30); Chloride 97 mmol/L (98-107); Estimated CRCL calculation 39 ml/min; Estimated Glomerular Filt Rate 44; Glucose 106 mg/dL (65-110); Potassium 4.7 mmol/L (3.4-5.0)
[2023-12-14] MEDS: polyethylene glycoL 3350 17 GM POWD.PACK PO (08:05)
[2023-12-14] MEDS: GABAPENTIN 300 MG CAPSULE PO ×2 (08:07→12:19)
[2023-12-14] MEDS: CHOLECALCIFEROL 1,000 UNITS TABLET 1000 UNITS PO (08:07)
[2023-12-14] MEDS: FAMOTIDINE 20 MG TABLET PO (08:07)
[2023-12-14 08:08] VITALS: PULSE 52
[2023-12-14] MEDS: METOPROLOL TARTRATE 50 MG TAB PO (08:08)
[2023-12-14] MEDS: SENNA/DOCUSATE SODIUM TABLET 2 TAB PO (08:09)
[2023-12-14] MEDS: ROSUVASTATIN 10 MG TABLET PO (08:09)
[2023-12-14] MEDS: lisinopriL 20 MG TABLET 40 MG PO (08:09)
[2023-12-14] MEDS: APIXABAN 2.5 MG TABLET PO (08:09)
[2023-12-14] MEDS: CELECOXIB 200 MG CAPSULE PO (08:10)
[2023-12-14 08:35] VITALS: BP 137/61; PULSE 53; RESP 16; TEMP 36.3; O2SAT 97
[2023-12-14 09:26] VITALS: O2SAT 96
[2023-12-14] MEDS: ACETAMINOPHEN 500 MG TABLET PO (11:16)
[2023-12-14 12:43] VITALS: BP 123/64; PULSE 94; RESP 18; TEMP 36.2; O2SAT 100
--- NOTE | 2023-12-14 13:02 | PM.PNORT ---
Progress Note: A&P Assessment and Plan (1) S/P total knee arthroplasty: Qualifiers: Laterality: right Qualified Code(s): Z96.651 - Presence of right artificial knee joint Code(s): Z96.659 - Presence of unspecified artificial knee joint Status: Acute Assessment and Plan: POD #1 : Right TKA Continue PT/OT. WBAT. Walker. HIGH FALL RISK. Continue pain control. Ice Knee. Protect skin. DVT prophylaxis with Aspirin. SCDs. Incentive Spirometry Use reviewed. Monitor Dressing. Change prior to discharge. Bowel Regimen. Post op sodium 130, creatinine 1.2 Will recheck BMP on Monday with HH to ensure improvement. Okay to proceed with d/c per Dr. Chacko. Dispo: Home with Home Health pending progress with PT/OT Plan Reviewed history, exam, radiographs and current labs with attending MD and covering surgeon, Dr. Chacko, who agrees with current plan as indicated above. No further recommendations from Dr. Chacko at this time. Subjective Subjective Date/Time Seen: 12/14/23 13:02 Post Op day: 1 Interval history: POD #1: Right TKA Patient doing well. Pain well controlled. No new concerns. Hopeful for d/c home today following stair climbing. Review of Systems Review of Systems: All systems reviewed & are unremarkable except as noted in HPI and below Constitutional: Constitutional: Denies fever(s) and Denies headache(s) ENT: Denies headache(s) Cardiovascular: Cardiovascular: Denies chest pain, Denies diaphoresis, Denies palpitations and Denies dyspnea Respiratory: Respiratory: Denies dyspnea Gastrointestinal: Gastrointestinal: Denies abdominal pain, Denies constipation, Denies nausea and Denies vomiting Genitourinary: Genitourinary: Reports nocturia and Denies dysuria Musculoskeletal: Musculoskeletal: Reports arthralgias (Right Knee ) and Reports joint swelling (Right Knee ) Neurologic: Denies headache(s) Endocrine: Endocrine: Denies palpitations Exam Const: General: comfortable and no acute distress Resp: Effort & Inspection: normal respiratory effort Cardio: Rate: regular rate Rhythm: regular rhythm GI: GI Palp: Yes Soft to palpation, No Tenderness to palpation present (GI) and No Guarding due to palpation present (GI) Skin: General skin exam: wounds noted Wounds: wounds noted Other: Incision c/d/i. No surrounding redness/warmth. No hematoma. Mild ecchymosis. No wound dehiscence Neuro: Cognition (Neuro): normal cognition Other: NV intact aside from block. Moves toes. Sensation intact to light touch. +ankle dorsiflexion/plantarflexion. Extrem: Right lower extremity: normal to inspection, knee Details: tenderness (diffuse, mild ) Location: of the patella, swelling (diffuse, consistent with surgical intervention ), abnormal ROM Details: pain with active ROM during, pain with passive ROM during and with range as follows (limited due to recent surgical intervention ); able to extend lower leg actively and ecchymosis (mild ), lower leg (Negative Avelino's Sign ) Details: normal to inspection; no erythema and no tenderness, ankle (+ankle dorsiflexion/plantarflexion ) Details: normal to inspection, no edema and normal ROM; no tenderness, no swelling and no ecchymosis and foot Details: normal capillary refill, normal to inspection, vascular exam Details: dorsalis pedis pulse present and motor-sensory exam Details: light-touch normal; no tenderness Left lower extremity: normal to inspection Psych: Mental Status: mental status grossly normal Objective Data Vital Signs Vital Signs: Vital Signs - 24 hr 12/13/23 13:15 12/13/23 13:45 12/13/23 14:00 Temperature 37.0 C Pulse Rate 88 82 81 Respiratory Rate 14 16 12 Blood Pressure 158/74 H 153/70 H 151/69 H Pulse Oximetry 98 97 96 Oxygen Delivery Simple Face Mask Simple Face Mask Nasal Cannula Oxygen Flow Rate 6 6 2 12/13/23 14:15 12/13/23 14:30 12/13/23 14:45 Temperature Pulse Rate 79 79 75 Respirator
--- NOTE | 2023-12-14 13:14 | PM.DS ---
DS: Admitting Diagnosis Discharge Date 12/14/2023 Admitting Diagnosis Right Knee DJD DS: Discharge Diagnosis Discharge Diagnosis (1) S/P total knee arthroplasty: Qualifiers: Laterality: right Qualified Code(s): Z96.651 - Presence of right artificial knee joint Code(s): Z96.659 - Presence of unspecified artificial knee joint Status: Acute Assessment and Plan: POD #1 : Right TKA Continue PT/OT. WBAT. Walker. HIGH FALL RISK. Continue pain control. Ice Knee. Protect skin. DVT prophylaxis with Aspirin. SCDs. Incentive Spirometry Use reviewed. Monitor Dressing. Change prior to discharge. Bowel Regimen. Post op sodium 130, creatinine 1.2 Will recheck BMP on Monday with HH to ensure improvement. Okay to proceed with d/c per Dr. Chacko. Dispo: Home with Home Health pending progress with PT/OT Plan Reviewed history, exam, radiographs and current labs with attending MD and covering surgeon, Dr. Chacko, who agrees with current plan as indicated above. No further recommendations from Dr. Chacko at this time. DS: Summary Hospital Course Reason for hospitalization: Right TKA Hospital Course: 73 year old female admitted s/p Right TKA for postoperative medical management, pain control and mobilization with PT/OT. Patient progressed well with PT/OT. Pain and vitals remained stable throughout. The patient has been cleared to be discharged home with home health at this time. All discharge care instructions reviewed at depth. New medications reviewed. Follow up planned for 3 weeks in the outpatient orthopedic clinic with Dr. Chacko. Will repeat CBC and BMP by HH RN on Monday. Dr. Chacko in agreement with safe discharge at this time. Status at Discharge Functional status at discharge: uses cane/walker Overall status at discharge: patient is progressing back to baseline Time Spent with Patient Time attestation: Total time spent providing and/or coordinating discharge services: Exam Const: General: comfortable and no acute distress Resp: Effort & Inspection: normal respiratory effort Cardio: Rate: regular rate Rhythm: regular rhythm Skin: General skin exam: wounds noted Wounds: wounds noted Other: Incision c/d/i. No surrounding redness/warmth. No hematoma. Mild ecchymosis. No wound dehiscence Neuro: Cognition (Neuro): normal cognition Other: NV intact aside from block. Moves toes. Sensation intact to light touch. +ankle dorsiflexion/plantarflexion. Extrem: Right lower extremity: normal to inspection, knee Details: tenderness (diffuse, mild ) Location: of the patella, swelling (diffuse, consistent with surgical intervention ), abnormal ROM Details: pain with active ROM during, pain with passive ROM during and with range as follows (limited due to recent surgical intervention ); able to extend lower leg actively and ecchymosis (mild ), lower leg (Negative Avelino's Sign ) Details: normal to inspection; no erythema and no tenderness, ankle (+ankle dorsiflexion/plantarflexion ) Details: normal to inspection, no edema and normal ROM; no tenderness, no swelling and no ecchymosis and foot Details: normal capillary refill, normal to inspection, vascular exam Details: dorsalis pedis pulse present and motor-sensory exam Details: light-touch normal; no tenderness Left lower extremity: normal to inspection Psych: Mental Status: mental status grossly normal DS: Data Data Completed and Pending Labs on day of discharge: Labs from last 24 hours 12/14/23 06:56 WBC 14.9 H RBC 3.87 L Hgb 12.2 Hct 38.4 MCV 99.2 MCH 31.5 MCHC 31.8 L RDW 12.3 Plt Count 233 MPV 9.0 Immature Gran % (Auto) 0.4 Neut % (Auto) 83.4 H Lymph % (Auto) 6.2 L Rich % (Auto) 9.6 H Eos % (Auto) 0.1 Baso % (Auto) 0.3 Lymph # (Auto) 0.93 Rich # (Auto) 1.4 H Eos # (Auto) 0.0 Baso # (Auto) 0.0 Abs Immat Gran (auto) 0.06 H Absolute Neuts (auto) 12.5 H Absolute Nucleated RBC 0.000 Nuclea
[2023-12-14] MEDS: oxyCODONE/ACETAMINOPHEN (*CRX) 5-325 MG TABLET 1 TABLET PO (13:56)
--- NOTE | 2023-12-14 14:32 | P.PNAN_ITS ---
Anes - Prog Note Post-Op Date/Time: 12/14/23 14:32 Vital Signs: Last Vital Signs Temp 36.2 C L 12/14/23 12:43 Pulse 94 12/14/23 12:43 Resp 18 12/14/23 12:43 BP 123/64 12/14/23 12:43 Pulse Ox 100 12/14/23 12:43 O2 Del Method Room Air 12/14/23 09:26 O2 Flow Rate 2 12/13/23 15:35 Pain Score (VAS): 3 I/O: Intake & Output 12/13/23 12/14/23 12/14/23 23:59 07:59 15:59 Intake Total 530 250 500 Balance 530 250 500 Laboratory Tests 12/14/23 06:56 12/14/23 06:56 12/14/23 06:56 WBC 14.9 H RBC 3.87 L Hgb 12.2 Hct 38.4 MCV 99.2 MCH 31.5 MCHC 31.8 L RDW 12.3 Plt Count 233 MPV 9.0 Immature Gran % (Auto) 0.4 Neut % (Auto) 83.4 H Lymph % (Auto) 6.2 L [place] % (Auto) 9.6 H Eos % (Auto) 0.1 Baso % (Auto) 0.3 Lymph # (Auto) 0.93 [place] # (Auto) 1.4 H Eos # (Auto) 0.0 Baso # (Auto) 0.0 Abs Immat Gran (auto) 0.06 H Absolute Neuts (auto) 12.5 H Absolute Nucleated RBC 0.000 Nucleated RBC % 0.0 Sodium 130 L Potassium 4.7 Chloride 97 L Carbon Dioxide 25 Anion Gap 8 BUN 19 H D Creatinine 1.20 H Estim Creat Clear Calc 39 Estimated GFR 44 L Glucose 106 Calcium 8.7 Patient Feedback: Patient satisfied with anesthetic care.
== END 2023-12-14 15:40 | disposition home health service (06) ==
LOC: ANHSURGERY 08:15 → ANH3MEDSUR 15:00
PROVIDERS: PCP Nurse Practitioner Family; Visit Provider Orthopaedic Surgery
PROC: (CPT 27447; principal; 2023-12-13 10:30)
DX: M17.11 Unilateral primary osteoarthritis, right knee (principal); M25.761 Osteophyte, right knee; G89.18 Other acute postprocedural pain; I10 Essential (primary) hypertension; E78.5 Hyperlipidemia, unspecified; I48.20 Chronic atrial fibrillation, unspecified; M50.30 Other cervical disc degeneration, unspecified cervical region; M05.79 Rheumatoid arthritis with rheumatoid factor of multiple sites without organ or systems involvement; K57.30 Diverticulosis of large intestine without perforation or abscess without bleeding; E66.9 Obesity, unspecified; Z68.32 Body mass index [BMI] 32.0-32.9, adult; Z79.01 Long term (current) use of anticoagulants; Z98.890 Other specified postprocedural states; Z87.891 Personal history of nicotine dependence; Z80.9 Family history of malignant neoplasm, unspecified; Z82.49 Family history of ischemic heart disease and other diseases of the circulatory system
CPT/HCPCS: 64447; 27447; 36415; 73560; 80048; 85025; 97110; 97116; 97161; 97165; 97530; A9270; C1713; C1776; J0171; J0690; J1100; J1200; J1741; J1885; J2003; J2250; J2270; J2405; J2704; J2795; J3010; J7030; J7120

== ENCOUNTER 2023-12-18 10:45 | Outpatient (NON) | payer MEDICARE, SELFPAY ==
[2023-12-18 11:29] LABS: Hematocrit 33.1 % (37.0-47.0); Hemoglobin 10.7 g/dL (12.0-15.0); Mean Corpuscular HGB Conc 32.3 g/dl (32-36); Mean Corpuscular Hemoglobin 32.2 pg (26-34); Mean Corpuscular Volume 99.7 fl (80-100); Mean Platelet Volume 9.3 fl (7.4-10.4); Platelet Count Result 335 k/mm3 (150-375); Red Blood Count 3.32 M/mm3 (4.2-5.4); Red Cell Distribution Width 12.3 % (11.5-14.5); White Blood Count 10.4 K/mm3 (4.5-10.0)
[2023-12-18 11:43] LABS: Anion Gap 11 mmol/L (4-12); Blood Urea Nitrogen 17 mg/dL (7-17); Calcium 9.3 mg/dL (8.4-10.2); Carbon Dioxide 28 mmol/L (22-30); Chloride 95 mmol/L (98-107); Estimated Glomerular Filt Rate > 60; Glucose 152 mg/dL (65-110); Sodium 134 mmol/L (137-145)
== END 2023-12-18 10:46 | disposition home or self-care (01) ==
LOC: HOME HLTH 10:48
PROVIDERS: PCP Nurse Practitioner Family; Referring Provider Nurse Practitioner Family; Visit Provider Orthopaedic Surgery
DX: Z47.1 Aftercare following joint replacement surgery (principal); Z96.651 Presence of right artificial knee joint
CPT/HCPCS: 80048; 85027

== ENCOUNTER 2024-06-04 10:03 | Outpatient (CLI) | payer MEDICARE, SELFPAY ==
--- NOTE | ~2024-06-04 | XR_ITS ---
EXAMINATION: XR hand LT 2V DATE: 06/04/2024 10:46 INDICATION: Multiple joint pain. TECHNIQUE: 2 views of right hand were obtained. COMPARISON: None. FINDINGS: Alignment is normal. No fracture. There is severe osteoarthritis of triscaphe joint and mil d osteoarthritis of first carpometacarpal joint. There is moderate osteoarthritis of first and second metacarpophalangeal joints and mild osteoarthritis of some of the interphalangeal joints. There is s evere osteoarthritis of first interphalangeal joint and moderate osteoarthritis of fourth distal inte rphalangeal joint. IMPRESSION: 1. Polyarticular osteoarthritis. Reviewed, dictated and finalized at location A.
--- NOTE | ~2024-06-04 | XR_ITS ---
EXAMINATION: XR hip BI wo pelvis DATE: 06/04/2024 10:46 INDICATION: Multiple joint pain. TECHNIQUE: 2 views of right hip and 2 views of left hip were obtained. COMPARISON: Radiographs 05/20/2014 FINDINGS: There is lumbar dextroscoliosis and moderate spondylosis. No fracture. There is mild osteoa rthritis of the hips. IMPRESSION: 1. Mild osteoarthritis of the hips. Reviewed, dictated and finalized at location A.
--- NOTE | ~2024-06-04 | XR_ITS ---
XR elbow RT 2V Ordering provider: Krzysztof Nelson MD History: . Multiple joint pain . Comparison: None. FINDINGS: BONES: No acute fracture or dislocation. JOINT SPACES: Normal. SOFT TISSUES: Unremarkable. No definite joint effusion. IMPRESSION: No acute osseous abnormality of the right elbow. Reviewed, dictated and finalized at location A.
--- NOTE | ~2024-06-04 | XR_ITS ---
XR wrist LT 2V Ordering provider: Krzysztof Nelson MD History: . Multiple joint pain . Comparison: None. FINDINGS: BONES: No acute fracture or dislocation. No definite scaphoid fracture. Small lucency in the lateral aspect of the scaphoid is seen which may be degenerative. JOINT SPACES: Well maintained. Osteoarthritic changes of the first metacarpophalangeal joint. SOFT TISSUES: Normal. IMPRESSION: No acute osseous abnormality left wrist. Reviewed, dictated and finalized at location A.
--- NOTE | ~2024-06-04 | XR_ITS ---
XR elbow LT 2V Ordering provider: Krzysztof Nelson MD History: . Multiple joint pain . Comparison: None. FINDINGS: BONES: No acute fracture or dislocation. JOINT SPACES: Normal. SOFT TISSUES: Normal. No definite joint effusion. IMPRESSION: No acute osseous abnormality left elbow. Reviewed, dictated and finalized at location A.
--- NOTE | ~2024-06-04 | XR_ITS ---
EXAMINATION: XR hand RT 2V DATE: 06/04/2024 10:46 INDICATION: Multiple joint pain. TECHNIQUE: 2 views of right hand were obtained. COMPARISON: None. FINDINGS: Alignment is normal. No fracture. There is mild osteoarthritis of distal radioulnar joint a nd first carpometacarpal joint. There is moderate osteoarthritis of first metacarpophalangeal joint a nd fifth proximal interphalangeal joint. There is mild osteoarthritis of many of the metacarpophalang eal joints and interphalangeal joints. IMPRESSION: 1. Polyarticular osteoarthritis. Reviewed, dictated and finalized at location A.
--- NOTE | ~2024-06-04 | XR_ITS ---
EXAMINATION: XR shoulder RT min 2V DATE: 06/04/2024 10:46 INDICATION: Multiple joint pain. TECHNIQUE: 2 views of right shoulder were obtained. COMPARISON: Right humerus radiographs 06/03/2022 FINDINGS: Alignment is normal. No fracture. Joint spaces are normal. IMPRESSION: 1. Normal right shoulder. Reviewed, dictated and finalized at location A. IMPRESSION: 1. Normal right shoulder.
--- NOTE | ~2024-06-04 | XR_ITS ---
XR wrist RT 2V Ordering provider: Krzysztof Nelson MD History: . Multiple joint pain . Comparison: None. FINDINGS: BONES: No acute fracture or dislocation. No definite scaphoid fracture. JOINT SPACES: Normal. SOFT TISSUES: Normal. IMPRESSION: No acute osseous abnormality right wrist. Reviewed, dictated and finalized at location A.
--- NOTE | ~2024-06-04 | XR_ITS ---
XR shoulder LT min 2V Ordering provider: Krzysztof Nelson MD History: . Multiple joint pain . Comparison: None. FINDINGS: BONES: No acute fracture or dislocation. JOINT SPACES: The acromioclavicular joint is normal. The glenohumeral joint is normal. SOFT TISSUES: Normal. IMPRESSION: No acute osseous abnormality left and right shoulder. Reviewed, dictated and finalized at location A.
== END 2024-06-04 10:04 | disposition home or self-care (01) ==
LOC: MICIMG 10:05
PROVIDERS: PCP Nurse Practitioner Family; Visit Provider Internal Medicine Rheumatology
DX: M25.50 Pain in unspecified joint (principal); M16.0 Bilateral primary osteoarthritis of hip; M19.041 Primary osteoarthritis, right hand; M19.042 Primary osteoarthritis, left hand
CPT/HCPCS: 73030; 73070; 73100; 73120; 73521

== ENCOUNTER 2024-06-17 09:51 | Outpatient (CLI) | payer MEDICARE, SELFPAY ==
--- NOTE | ~2024-06-17 | MR_ITS ---
MRI of the lumbar spine Clinical History: Back pain Technique: Axial T2-weighted images, and sagittal T1-weighted, T2-weighted, and T2 fat-sat images wer e acquired. Findings: No fracture or subluxation seen. There is dextro scoliosis of the lumbar spine. No suspicio us bone marrow signal abnormality seen. There are mild reactive marrow signal changes due to underlyi ng degenerative disc disease. At L1-L2, there is advanced degenerative disc narrowing. There is minimal disc bulge and mild facet a rthropathy. No violette central canal stenosis. There is moderate left neural foraminal narrowing. Right neural foramen preserved. At L2-L3, there is advanced degenerative disc narrowing. There is minimal bulge with moderate facet a rthropathy. No central canal stenosis. There is moderate left neural foraminal narrowing. Right neura l foramen preserved. At L3-L4, there is disc bulge with severe facet arthropathy. There is moderate spinal canal stenosis/ thecal sac compression. There is mild left neural foraminal narrowing. Right neural foramen mildly na rrowed as well. At L4-L5, there is disc bulge with severe facet arthropathy. No [place]te central canal stenosis. There i s severe right neural foraminal narrowing. Left neural foramen preserved. At L5-S1, there is advanced degenerative disc narrowing. There is moderate facet arthropathy. No cent ral canal stenosis or left neural foraminal narrowing. There is mild right neural foraminal narrowing . Paravertebral soft tissues are unremarkable. Impression: Moderate degenerative spondylosis overall, significant dextro scoliosis. Reviewed, dictated and finalized at [facility]. Impression: Moderate degenerative spondylosis overall, significant dextro scoliosis.
== END 2024-06-17 09:52 | disposition home or self-care (01) ==
LOC: MICIMG 09:53
PROVIDERS: PCP Nurse Practitioner Family; Visit Provider Internal Medicine Rheumatology
DX: M47.896 Other spondylosis, lumbar region (principal)
CPT/HCPCS: 72148

== ENCOUNTER 2024-11-13 11:12 | Outpatient (CLI) | payer MEDICARE, SELFPAY ==
--- NOTE | ~2024-11-13 | MM_ITS ---
EXAMINATION: MM screening liset BI w brissa HISTORY: Screening TECHNIQUE: Craniocaudal and mediolateral oblique 3-D tomosynthesis images were obtained and synthetic 2-D images were generated. CAD analysis was submitted and interpreted. COMPARISON: 02/18/2021 BREAST PARENCHYMAL COMPOSITION: There are scattered areas of fibroglandular density. FINDINGS: There is no evidence of suspicious mass, calcification, or architectural distortion in either breast to suggest malignancy. There has been no significant interval change. IMPRESSION: 1. No mammographic evidence of malignancy. Recommend routine screening mammography in one year. BI-RADS Category 1: Negative Reviewed, dictated and finalized at location Q. IMPRESSION: 1. No mammographic evidence of malignancy. Recommend routine screening mammogra phy in one year. BI-RADS Category 1: Negative
== END 2024-11-13 11:13 | disposition home or self-care (01) ==
LOC: MICIMG 11:14
PROVIDERS: PCP Nurse Practitioner Family; Visit Provider Internal Medicine Rheumatology
DX: Z12.31 Encounter for screening mammogram for malignant neoplasm of breast (principal)
CPT/HCPCS: 77063; 77067